=== PATIENT | male | born 1930 | race Caucasian/White ===

== ENCOUNTER 2019-01-30 13:00 | Emergency (ER) | payer MEDICARE, OTHER ==
[~2019-01-30] VITALS: Ht 193 cm; Wt 73.5 kg
--- OUTSIDE RECORDS SUMMARY | ~2019-01-30 | XMS | Encounter Summary ---
Demographics + + + | Address | [address] | | | [place] [address] | + + + | Home Phone | | + + + | Preferred Language | Unknown | + + + | Marital Status | | + + + | Yazidism Affiliation | Unknown | + + + | Race | Unknown | + + + | Ethnic Group | Unknown | + + + Author + + + | Author | [facility] | | | and [place] | + + + | Organization | [facility] | | | and [place] | + + + | Address | Unknown | + + + | Phone | Unavailable | + + + Support + + + + + | Name | Relationship | Address | Phone | + + + + + | Cristina Ashton | ECON | [address] | | | | | [place] | | | | | [address] | | + + + + + Care Team Providers + +------+ + | Care Clinical Research Specialist Name | Role | Phone | + +------+ + | Misha Foy | PCP | | | MD | | | + +------+ + Reason for Visit +---------+ + | Reason | Comments | +---------+ + | Results | 01/02/19 | +---------+ + Encounter Details +--------+ + + + + | Date | Type | Department | Care Team | Description | +--------+ + + + + | 01/05/ | Documentati | [facility] | Nicolas, | Results (01/02/19) | | 2019 | on | NEPHROLOGY IGOR | Herminio Abreu | | | | | [address] | Hhas | | | | | [address] [facility] [place] | | | | | | [address] | | | | | | [phone] | | | +--------+ + + + + Social History + +-------+ +--------+------+ | Tobacco Use | Types | Packs/Day | Years | Date | | | | | Used | | + +-------+ +--------+------+ | Never Smoker | | | | | + +-------+ +--------+------+ + +---+---+---+ | Smokeless Tobacco: | | | | | Never Used | | | | + +---+---+---+ + + + | Sex Assigned at | Date Recorded | | | | + + + | Not on file | | + + + + + + + | Job Start Date | Occupation | Industry | + + + + | Not on file | Not on file | Not on file | + + + + + + + + | Travel History | Travel Start | Travel End | + + + + + + | No recent travel history available. | + + documented as of this encounter Plan of Treatment +--------+---------+ + + + | Date | Type | Specialty | Care Team | Description | +--------+---------+ + + + | 05/07/ | Office | Nephrology | Elijah Bermeo MD | | | 2020 | Visit | | [address] [facility] | | | | | | [address] [place], [place] | | | | | | [address] | | | | | | | | +--------+---------+ + + + documented as of this encounter Procedures + +--------+ + + + | Procedure Name | Priori | Date/Time | Associated Diagnosis | Comments | | | ty | | | | + +--------+ + + + | CBC W/AUTO | Routin | 01/02/2019 | | Results for this | | DIFFERENTIAL | e | 16:00 PDT | | procedure are in the | | | | | | results section. | + +--------+ + + + | URIC ACID | Routin | 01/02/2019 | | Results for this | | | e | 16:00 PDT | | procedure are in the | | | | | | results section. | + +--------+ + + + | MAGNESIUM | Routin | 01/02/2019 | | Results for this | | | e | 16:00 PDT | | procedure are in the | | | | | | results section. | + +--------+ + + + | RENAL FUNCTION PANEL | Routin | 01/02/2019 | | Results for this | | | e | 16:00 PDT | | procedure are in the | | | | | | results section. | + +--------+ + + + documented in this encounter Results Uric Acid (01/02/2019 16:00 PDT) + +---------+ + + + | Component | Value | Ref Range | Performed | Pathologist | | | | | At | Signature | + +---------+ + + + | URIC ACID | 7.7 (A) | 4.4 - 7.6 | | | | (REF) | | | | | + +---------+ + + + + + | Specimen | + + | Blood | + + Renal Function Panel (01/02/2019 16:00 PDT) + + + + + + | Component | Value | Ref Range | Performed | Pathologist | | | | | At | Signature | + + + + + + | Na | 139 | 132 - 143 | | | | | | mmol/L | | | + + + + + + | K | 4.8 | 3.6 - 5.1 | | | | | | mmol/L | | | + + + + + + | Cl | 105 | 95 - 112 mmol/L | | | + + + + + + | CO2 | 23 | 19 - 31 mmol/L | | | + + + + + + | Anion Gap | 16 | 7 - 21 mmol/L | | | + + + + + + | Glucose | 142 (A) | 70 - 100 mg/dL | | | + + + + + + | BUN | 35 (A) | 6 - 23 mg/dL | | | + + + + + + | Creatinine | 2.02 (A) | 0.70 - 1.11 | | | + + + + + + | eGFR, | 31 (A) | 60 - 140 | | | | External | | | | | + + + + + + | BUN/Creatin | 17.3 | 6.0 - 28.6 | | | | ine Ratio | | | | | + + + + + + | Albumin | 3.9 | 3.5 - 5.0 g/dL | | | + + + + + + | Calcium | 9.6 | 8.5 - 10.3 | | | + + + + + + | PHOSPHORUS | 3.4 | 2.5 - 5.0 | | | + + + + + + + + | Specimen | + + | Blood | + + Magnesium (01/02/2019 16:00 PDT) + +-------+ + + + | Component | Value | Ref Range | Performed | Pathologist | | | | | At | Signature | + +-------+ + + + | Magnesium | 2.2 | 1.7 - 2.5 mg/dL | | | + +-------+ + + + + + | Specimen | + + | Blood | + + CBC w/ Auto Differential (01/02/2019 16:00 PDT) + + + + + + | Component | Value | Ref Range | Performed | Pathologist | | | | | At | Signature | + + + + + + | WBC | 5.6 | 4.5 - 11.0 | | | + + + + + + | RBC COUNT | 4 | 4 - 6 | | | + + + + + + | Hemoglobin | 12.9 (A) | 13.5 - 18.0 | | | + + + + + + | Hematocrit, | 39.1 (A) | 41 - 50 | | | | BF | | | | | + + + + + + | MCV | 91.1 | 81 - 99 | | | + + + + + + | RDW | 14.3 | 10.5 - 15.0 | | | + + + + + + | MCH | 30 | 27 - 33 | | | + + + + + + | MCHC, POC | 33 | 30 - 36 | | | + + + + + + | Platelet | 198 | 140 - 440 | | | | Count | | | | | | Plasma | | | | | + + + + + + | NEUTROPHILS | 61.2 | 39 - 80 % | | | | BL | | | | | + + + + + + | LYMPHOCYTES | 27.6 | 24 - 44 % | | | | BL | | | | | + + + + + + | MONOCYTES | 7.4 | 0 - 12 | | | | BAL | | | | | + + + + + + | EOSINOPHILS | 3.2 | 0 - 6 % | | | | BL | | | | | + + + + + + | BASOPHILS | 0.6 | 0 - 2 | | | | BAL | | | | | + + + + + + + + | Specimen | + + | Blood | + + documented in this encounter Visit Diagnoses Not on filedocumented in this encounter"
--- OUTSIDE RECORDS SUMMARY | ~2019-01-30 | XMS | Clinical Summary ---
Demographics + + + | Address | [address] | | | [place] [address] | + + + | Home Phone | | + + + | Preferred Language | Unknown | + + + | Marital Status | | + + + | Taoist Affiliation | Unknown | + + + | Race | Unknown | + + + | Ethnic Group | Unknown | + + + Author + + + | Author | [facility] | | | and [place] | + + + | Organization | [facility] | | | and [place] | + + + | Address | Unknown | + + + | Phone | Unavailable | + + + Support + + + + + | Name | Relationship | Address | Phone | + + + + + | Cristina Ashton | ECON | [address] [facility] | | | | | [place] | | | | | [address] | | + + + + + Care Team Providers + +------+ + | Care Hide Dropper Name | Role | Phone | + +------+ + | Misha Foy | PCP | | | MD | | | + +------+ + Allergies + + + + + + | Active Allergy | Reactions | Severity | Noted | Comments | | | | | Date | | + + + + + + | Zolpidem | Hallucination | Low | 10/21/19 | Confusion, Pt | | | | | 12 | requests to not be | | | | | | given this drug. | + + + + + + | Levofloxacin | Other (See Comments) | Medium | 01/19/20 | Nabeele a tendon in | | | | | 18 | the leg | + + + + + + | Nsaids | Other (See Comments) | Medium | | | + + + + + + Medications + + + +---------+------+------+-------+ | Medication | Sig | Dispensed | Refills | Star | End | Statu | | | | | | t | Date | s | | | | | | Date | | | + + + +---------+------+------+-------+ | cholecalciferol | Take 5,000 Units by | | 0 | 03/2 | | Activ | | (VITAMIN D-3) 1,000 | mouth daily. | | | 0/20 | | e | | units capsule | | | | 15 | | | + + + +---------+------+------+-------+ | carbidopa-levodopa | Take 1 tablet by | | 0 | 03/0 | | Activ | | (SINEMET) 25-100 mg | mouth 3 (three) | | | 8/20 | | e | | per tablet | times daily. | | | 19 | | | + + + +---------+------+------+-------+ | aspirin 81 MG | Take 1 tablet by | 30 | 11 | 03/1 | 03/1 | Activ | | tablet | mouth daily. | tablet | | 4/20 | 3/20 | e | | | | | | 19 | 20 | | + + + +---------+------+------+-------+ | levothyroxine | Take 50 mcg by mouth | | 0 | | | Activ | | (SYNTHROID) 50 mcg | every morning | | | | | e | | tablet | (before breakfast). | | | | | | + + + +---------+------+------+-------+ | lisinopril | Take 0.5 tablets by | 30 | 11 | 12/01 | 12/01 | Activ | | (PRINIVIL, ZESTRIL) | mouth 2 times daily. | tablet | | /20 | 05/21 | e | | 5 mg tablet | | | | 19 | 20 | | + + + +---------+------+------+-------+ | ferrous sulfate | Take 325 mg by mouth | | 0 | | | Activ | | 325 mg tablet | Once a week. | | | | | e | + + + +---------+------+------+-------+ | IRON PO | Take 325 mg by mouth | | 0 | 03/1 | 01/01 | Disco | | | once a week. | | | 08/19 | 07/19 | ntinu | | | | | | | 19 | ed | + + + +---------+------+------+-------+ Active Problems + + + | Problem | Noted Date | + + + | Parkinson's disease | 12/22/2018 | + + + | Coronary artery disease involving [place] coronary artery of | 11/16/2018 | | [place] heart without angina pectoris | | + + + + + | Overview: angiogram 10/19/2011: 3 Vessel coronary artery | | disease to LAD, OM ,right PDA. 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 EVH right leg | + + + + + | Sinus bradycardia | 10/19/2011 | + + + | Hypothyroidism | 10/18/2011 | + + + | History of non-ST elevation myocardial infarction (NSTEMI) | 10/18/2011 | + + + + + | Overview: 10/2011 | + + + + + | Hemorrhoids | 10/18/2011 | + + + | Epigastric pain | 10/18/2011 | + + + | CKD (chronic kidney disease), stage III | 05/31/2011 | + + + | Nephrolithiasis | 05/31/2011 | + + + | Anemia of chronic renal failure | 05/31/2011 | + + + | Hydronephrosis | 05/31/2011 | + + + + + | Overview: Chronic; Left side. | + + + + + | Vitamin D deficiency | 05/31/2011 | + + + | Secondary hyperparathyroidism | 05/31/2011 | + + + | Proteinuria | 05/31/2011 | + + + + + | Overview: Mild. | + + + + + | BPH (benign prostatic hypertrophy) | 05/31/2011 | + + + + + | Overview: S/P TURP | + + Encounters +--------+ + + + + | Date | Type | Specialty | Care Team | Description | +--------+ + + + + | 01/23/ | Telephone | Cardiology | Karyn Wren | Patient Concerns | | 2019 | | | [place] | | +--------+ + + + + | 01/22/ | Office | Cardiology | Karyn Wren | Coronary artery | | 2019 | Visit | | [place] | disease involving | | | | | | [place] coronary | | | | | | artery of [place] | | | | | | heart without angina | | | | | | pectoris (Primary | | | | | | Dx); Moderate aortic | | | | | | insufficiency; | | | | | | Chronic combined | | | | | | systolic and | | | | | | diastolic heart | | | | | | failure (HCC); | | | | | | Essential | | | | | | hypertension; | | | | | | Bradycardia on ECG; | | | | | | History of non-ST | | | | | | elevation myocardial | | | | | | infarction | | | | | | (NSTEMI); Encounter | | | | | | for monitoring | | | | | | DARREN-inhibitor | | | | | | therapy; CKD | | | | | | (chronic kidney | | | | | | disease), stage III | +--------+ + + + + | 01/08/ | Documentati | Cardiology | Yamilet Cole, | Delilah (Edmundo. | | 2019 | on | | TOWER EQUIPMENT REPAIRER | 01/02/19) | +--------+ + + + + | 01/05/ | Office | Nephrology | Rosas Martinez, | CKD (chronic kidney | | 2019 | Visit | | NUCLEAR SECURITY OFFICER | disease), stage III | | | | | | (Primary Dx) | +--------+ + + + + | 01/05/ | Documentati | Nephrology | Nicolas, | Results (01/02/19) | | 2019 | on | | Herminio Abreu | | | | | | Field Engineer | | +--------+ + + + + | 01/02/ | Telephone | Nephrology | Rosas Martinez, | Other (Appointment | | 2018 | | | NUCLEAR SECURITY OFFICER | reminder call) | +--------+ + + + + | 12/21/ | Office | Cardiology | Karyn Wren | Coronary artery | | 2018 | Visit | | [place] | disease involving | | | | | | [place] coronary | | | | | | artery of [place] | | | | | | heart without angina | | | | | | pectoris (Primary | | | | | | Dx); S/P CABG x 4; | | | | | | Moderate aortic | | | | | | insufficiency; | | | | | | History of non-ST | | | | | | elevation myocardial | | | | | | infarction | | | | | | (NSTEMI); Chronic | | | | | | systolic heart | | | | | | failure (HCC); | | | | | | Bradycardia on ECG; | | | | | | Essential | | | | | | hypertension; | | | | | | Encounter for | | | | | | monitoring | | | | | | DARREN-inhibitor | | | | | | therapy; Chronic | | | | | | kidney disease, | | | | | | stage III (moderate) | | | | | | ([facility]); Parkinson's | | | | | | disease ([facility]) | +--------+ + + + + | 11/16/ | Orders Only | Cardiology | Karyn Wren | Chronic kidney | | 2019 | | | [place] | disease, stage III | | | | | | (moderate) ([facility]); | | | | | | Proteinuria; | | | | | | Bradycardia; | | | | | | Encounter for | | | | | | therapeutic drug | | | | | | level monitoring | +--------+ + + + + from Last 3 Months Immunizations + + + + | Name | Dates Previously Given | Next Due | + + + + | PNEUMOCOCCAL | 10/19/2011 | | | POLYSACCHARIDE | | | | 23-VALENT (PPSV23) | | | + + + + Family History + + +------+ + | Medical History | Relation | Name | Comments | + + +------+ + | Diabetes, NIDDM | Father | | | + + +------+ + | Heart disease | Mother | | | + + +------+ + + +------+ + + | Relation | Name | Status | Comments | + +------+ + + | Father | | | | + +------+ + + | Father | | | | + +------+ + + | Mother | | | | + +------+ + + | Mother | | | | + +------+ + + Social History + +-------+ +--------+------+ [...] recent travel history available. | + + Last Filed Vital Signs + + + + | Vital Sign | Reading | Time Taken | + + + + | Blood Pressure | 92/54 | 01/22/2019 1309 PDT | + + + + | Pulse | 62 | 01/22/20191308 PDT | + + + + | Temperature | 35.6 C (96 F) | 05/31/2016 1014 PST | + + + + | Respiratory Rate | 18 | 11/16/2018 1445 PDT | + + + + | Oxygen Saturation | 98% | 01/22/20191308 PDT | + + + + | Inhaled Oxygen | - | - | | Concentration | | | + + + + | Weight | 73.4 kg (161 lb 14.4 | 01/22/20191308 PDT | | | oz) | | + + + + | Height | 193 cm (6' 4") | 01/22/2019 1309 PDT | + + + + | Body Mass Index | 19.71 | 01/22/2019 1309 PDT | + + + + Plan of Treatment +--------+---------+ + + + | Date | Type | Specialty | Care Team | Description | +--------+---------+ + + + | 05/07/ | Office | Nephrology | Elijah Bermeo MD | | | 2020 | Visit | | [address] [facility] | | | | | | [address] [place] | | | | | | [address] | | | | | | | | +--------+---------+ + + + + + + + + | Health Maintenance | Due Date | Last Done | Comments | + + + + + | Vaccine: | | | | | Dtap/Tdap/Td (1 - | 1 | | | | Tdap) | | | | + + + + + | Vaccine: Zoster (2 | | 01/31/2015 | | | of 3) | 5 | | | + + + + + | Adult Annual | | | | | Wellness Visit | 9 | | | + + + + + | Vaccine: Influenza | | 03/07/2018, 03/09/2017, | | | (#1) | 9 | 03/08/2016, Additional history | | | | | exists | | + + + + + | Vaccine: | Completed | 01/20/2015, 10/19/2011 | | | Pneumococcal 65+ | | | | | High/Highest Risk | | | | + + + + + Implants + +------+-------+ +--------+--------+--------+ | Implanted | Type | Area | Manufacture | Device | Shelf | Model | | | | | r | | Expira | / | | | | | | Identi | tion | Serial | | | | | | fier | Date | / Lot | + +------+-------+ +--------+--------+--------+ | Pacing Wire Dual | | N/A: | MEDLINE | | 03/31/ | 030-00 | | 030-005 - | | Heart | -LLOYD [id number] - | | 2015 | 5 | | [id number]: Qty: 1 on | | | MEDL | | | /[id number] | | 10/21/2011 | | | | | | /151 | + +------+-------+ +--------+--------+--------+ Procedures + +--------+ + + + | [...] | + +--------+ + + + | LABS - EXTERNAL SCAN | | 01/02/2019 | | Results for this | | | | 0:00 PDT | | procedure are in the | | | | | | results section. | + +--------+ + + + from Last 3 Months Results CBC w/ Auto Differential (01/02/2019 16:00 PDT) [...] + + | Blood | + + Uric Acid (01/02/2019 16:00 PDT) + +---------+ [...] + + | Blood | + + LABS - EXTERNAL SCAN (01/02/2019 0:00 PDT) + + + | Narrative | Performed At | + + + | Ordered by an | | | unspecified provider. | | + + + from Last 3 Months Insurance + +--------+ +--------+ +---------+--------+ | Payer | Benefi | Subscriber | Effect | Phone | Address | Type | | | t Plan | ID | rajwinder | | | | | | / | | Dates | | | | | | Group | | | | | | + +--------+ +--------+ +---------+--------+ | MEDICARE | MEDICA | [id number] | | [phone] | | Medica | | | RE | | 999-Pr | 5 | | re | | | PART A | | esent | | | | | | AND B | | | | | | + +--------+ +--------+ +---------+--------+ | | TRICAR | [id number] | 12/03/19 | [phone] | | Indemn | | | E FOR | | 19-Pre | 0 | | ity | | | LIFE | | sent | | | | + +--------+ +--------+ +---------+--------+ + +--------+ +--------+ + + | Guarantor Name | Accoun | Relation to | Date | Phone | Billing Address | | | t Type | Patient | of | | | | | | | | | | + +--------+ +--------+ + + | Graeme Ashton | Person | Self | [birth year] | [address] | | | al/Abhijeet | | [phone] | [phone] | [place] | | | deuce | | | 5 (Home) | [address] | + +--------+ +--------+ + + Advance Directives Patient has advance care planning documents on file. For more information, please contact:[facility] [place] [address]
--- OUTSIDE RECORDS SUMMARY | ~2019-01-30 | XMS | Clinical Summary ---
Demographics + + + | Address | [address] | | | [place] [address] | + + + | Home Phone | | + + + | Preferred Language | Unknown | + + + | Marital Status | | + + + | Sabianist Affiliation | Unknown | + + + | Race | Unknown | + + + | Ethnic Group | Unknown | + + + Author + + + | Author | [facility] (Historical as of | | | 12-16-18) | + + + | Organization | [facility] (Historical as of | | | 12-16-18) | + + + | Address | Unknown | + + + | Phone | Unavailable | + + + Support + + + + + | Name | Relationship | Address | Phone | + + + + + | Cristina Ashton | ECON | [address] [facility] | | | | | [place] | | | | | [address] | | + + + + + Care Team Providers + +------+ + | Care Shuttle Preparation Supervisor Name | Role | Phone | + +------+ + | Misha Foy MD | PP | | + +------+ + Allergies + + + + + + | Active Allergy | Reactions | Severity | Noted | Comments | | | | | Date | | + + + + + + | Zolpidem | Confusion | Low | 10/21/19 | Pt requests to not | | | | | 12 | be given this drug. | + + + + + + | Levofloxacin | Other (See Comments) | Medium | 01/19/20 | Nabeele a tendon in | | | | | 18 | the leg | + + + + + + | Nsaids | Other (See Comments) | Medium | | | + + + + + + Current Medications + + +--------+---------+------+------+-------+ | Prescription | Sig. | Disp. | Refills | Star | End | Statu | | | | | | t | Date | s | | | | | | Date | | | + + +--------+---------+------+------+-------+ | levothyroxine | Take 125 mcg by | | | | | Activ | | (SYNTHROID, | mouth. | | | | | e | | LEVOTHROID) 125 MCG | | | | | | | | tablet | | | | | | | + + +--------+---------+------+------+-------+ | Cholecalciferol | Take 5,000 Units by | | | 03/2 | | Activ | | 1000 UNITS capsule | mouth daily. | | | 0/20 | | e | | | | | | 15 | | | + + +--------+---------+------+------+-------+ | omeprazole | | | | 09/1 | | Activ | | (PRILOSEC) 20 MG | | | | 1/20 | | e | | capsule | | | | 18 | | | + + +--------+---------+------+------+-------+ | carbidopa-levodopa | Take 1 tablet by | | | | | Activ | | (SINEMET) 25-100 MG | mouth 3 (three) | | | | | e | | per tablet | times daily. | | | | | | + + +--------+---------+------+------+-------+ | IRON PO | Take 325 mg by mouth | | | | | Activ | | | once a week. | | | | | e | + + +--------+---------+------+------+-------+ | aspirin 81 MG | Take 1 tablet by | 30 | 11 | 06/30 | 06/30 | Activ | | tablet | mouth daily. | tablet | | 08/19 | 07/19 | e | | | | | | 19 | 20 | | + + +--------+---------+------+------+-------+ | lisinopril | Take 1 tablet by | 30 | 11 | 10/30 | 10/30 | Activ | | (ZESTRIL) 5 MG | mouth nightly. 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 | + + + + + | BPH (benign prostatic hypertrophy) | 05/31/2011 | + + + + + | Overview: S/P TURP | + + Resolved Problems + + + + | Problem | Noted | Resolved | | | Date | Date | + + + + | MARI (acute kidney injury) | 11/15/19 | | | | 12 | 3 | + + + + | Edema of lower extremity | 10/26/19 | | | | 12 | 3 | + + + + Encounters +--------+ + + + + | Date | Type | Specialty | Care Team | Description | +--------+ + + + + | 11/16/ | Office | | Karyn Wren | Coronary artery | | 2018 | Visit | | [facility] [place] | disease involving | | | | | | tulalip coronary | | | | | | artery of tulalip | | | | | | heart without angina | | | | | | pectoris (Primary | | | | | | Dx); S/P CABG x 4; | | | | | | Chronic combined | | | | | | systolic and | | | | | | diastolic heart | | | | | | failure (HCC); | | | | | | Moderate aortic | | | | | | insufficiency; Sinus | | | | | | bradycardia; | | | | | | Essential | | | | | | hypertension; CKD | | | | | | (chronic kidney | | | | | | disease), stage III; | | | | | | History of non-ST | | | | | | elevation myocardial | | | | | | infarction | | | | | | (NSTEMI); | | | | | | Bradycardia on ECG; | | | | | | Encounter for | | | | | | monitoring | | | | | | DARREN-inhibitor | | | | | | therapy | +--------+ + + + + | 11/15/ | Telephone | | Angeline Garduno MA | | | 2018 | | | | | +--------+ + + + + from Last 3 Months Immunizations + + + + | Name | Dates Previously Given | Next Due | + + + + | Pneumococcal | 10/19/2011 | | | Polysaccharide | | | | 23-valent | | | + + + + Family History + + +------+ + | Medical History | Relation | Name | Comments | + + +------+ + | Diabetes type II | Father | | | + + [...] | | | + +---+---+---+ + + +---------+ + | Alcohol Use | Drinks/We | oz/Week | Comments | | | ek | | | + + +---------+ + | No | | | | + + +---------+ + + + + | Sex Assigned at | Date Recorded | | | | + + + | Not on file | | + + + Last Filed Vital Signs + + + + | Vital Sign | Reading | Time Taken | + + + + | Blood Pressure | 150/72 | 11/16/2018 2:34 PM PDT | + + + + | Pulse | 64 | 11/16/2018 2:34 PM PDT | + + + + | Temperature | 35.6 C (96 F) | 05/31/2016 10:03 AM PST | + + + + | Respiratory Rate | 18 | 11/16/2018 2:34 PM PDT | + + + + | Oxygen Saturation | 98% | 11/16/2018 2:34 PM PDT | + + + + | Inhaled Oxygen | - | - | | Concentration | | | + + + + | Weight | 81.3 kg (179 lb 4.8 | 11/16/2018 2:34 PM PDT | | | oz) | | + + + + | Height | 193 cm (6' 4") | 11/16/2018 2:34 PM PDT | + + + + | Body Mass Index | 21.83 | 11/16/2018 2:34 PM PDT | + + + + Plan of Treatment + + + + + | Health Maintenance | Due Date | Last Done | Comments | + + + + + | Vaccine: | | | | | Dtap/Tdap/Td (1 - | 1 | | | | Tdap) | | | | + + + + + | Vaccine: Zoster (1 | | | | | of 2) | 2 | | | + + + + + | Vaccine: | | 10/19/2011 | | | Pneumococcal 65+ | 3 | | | | High/Highest Risk (2 | | | | | of 2 - PCV13) | | | | + + + + + | Vaccine: Influenza | | | | | (#1) | 9 | | | + + + + + Implants + +------+-------+ +--------+--------+--------+ | Implanted | Type | Area | Manufacture | Device | Expira | Model | | | | | r | | tion | / | | | | | | Identi | Date | Serial | | | | | | fier | | / Lot | + +------+-------+ +--------+--------+--------+ | Pacing Wire Dual | | N/A: | MEDLINE | | 03/31/ | 030-00 | | 030-005 - | | Heart | | | 2015 | 5 | | [id number]: Qty: 1 on | | | | | | [id number] | | 10/21/2011 by Edward, | | | | | | | | MD Wesley | | | | | | | + +------+-------+ +--------+--------+--------+ Procedures + +--------+ + + + | Procedure Name | Priori | Date/Time | Associated Diagnosis | Comments | | | ty | | | | + +--------+ + + + | EKG STANDARD 12 LEAD | Routin | 11/16/2018 | Coronary artery | Results for this | | | e | 2:43 PM | disease involving | procedure are in the | | | | PDT | tulalip coronary | results section. | | | | | artery of tulalip | | | | | | heart without angina | | | | | | pectoris S/P CABG | | | | | | x 4 Moderate aortic | | | | | | insufficiency | | | | | | Sinus bradycardia | | | | | | Essential | | | | | | hypertension CKD | | | | | | (chronic kidney | | | | | | disease), stage III | | | | | | History of non-ST | | | | | | elevation myocardial | | | | | | infarction (NSTEMI) | | | | | | Bradycardia on ECG | | + +--------+ + + + from Last 3 Months Results EK STANDARD 12 LEAD (11/16/2018 2:43 PM) + + + + + | Component | Value | Ref Range | Performed At | + + + + + | Ventricular Rate | 64 | BPM | [facility] | + + + + + | Atrial Rate | 64 | BPM | [facility] | + + + + + | P-R Interval | 262 | ms | [facility] | + + + + + | QRS Duration | 100 | ms | [facility] | + + + + + | Q-T Interval | 446 | ms | [facility] | + + + + + | QTC Calculation | 460 | ms | [facility] | | (Bezet) | | | | + + + + + | Calculated P [place] | 43 | degrees | [facility] | + + + + + | Calculated R [place] | -45 | degrees | [facility] | + + + + + | Calculated T [place] | 94 | degrees | [facility] | + + + + + | Diagnosis | Please refer to | | [facility] | | | Providers office visit | | | | | note for Providers | | | | | Interpretation.Confirmed | | | | | by [facility] [place] Read Only, | | | | | [facility] ([id number]), | | | | | movie editor Julio Smith | | | | | ([id number]) on 11/16/2018 | | | | | 3:02:55 PM | | | + + + + + + + + + + | Performing | Address | City/State/Zipcode | Phone Number | | Organization | | | | + + + + + | [facility] | [address] | [place] [address] | | + + + + + from Last 3 Months Insurance + +--------+ +------+-------+ + | Payer | Benefi | Subscriber | Type | Phone | Address | | | t Plan | ID | | | | | | / | | | | | | | Group | | | | | + +--------+ +------+-------+ + | MEDICARE | MEDICA | [id number] | | | [address] | | | [place] | | | | [place] [id number] | | | IP-OP | | | | | + +--------+ +------+-------+ + | - WPS - | TRICAR | [id number] | | | [address] [address] | | [place] | [place] | | | | [place] | | | LIFE | | | | [phone] | + +--------+ +------+-------+ + + +--------+ +--------+ + + | Guarantor Name | Accoun | Relation to | Date | Phone | Billing Address | | | t Type | Patient | of | | | | | | | | | | + +--------+ +--------+ + + | ELISSA ASHTON | Person | Self [birth year] Home: | [address] | | | al/Fam | | 1931 | [phone] [place] | | | deuce | | | [phone] | [phone] | + +--------+ +--------+ + +
--- OUTSIDE RECORDS SUMMARY | ~2019-01-30 | XMS | Encounter Summary ---
Demographics + + + | Address | [address] | | | [place] [address] | + + + | Home Phone | | + + + | Preferred Language | Unknown | + + + | Marital Status | | + + + | Jew Affiliation | Unknown | + + + | Race | Unknown | + + + | Ethnic Group | Unknown | + + + Author + + + | Author | [facility] | | | and [place] | + + + | Organization | [facility] | | | and [place] | + + + | Address | Unknown | + + + | Phone | Unavailable | + + + Support + + + + + | Name | Relationship | Address | Phone | + + + + + | Cristina Ashton | МАРИНА | [address] [facility] | | | | | [place] | | | | | [address] | | + + + + + Care Team Providers + +------+ + | Care Gum Rolling Machine Tender Name | Role | Phone | + +------+ + | Misha Foy PCP | | | MD | | | + +------+ + Encounter Details +--------+ + + + + | Date | Type | Department | Care Team | Description | +--------+ + + + + | 11/16/ | Orders Only | [facility] | Karyn Wren | Chronic kidney | | 2019 | | CARDIOLOGY [place] | [address] | disease, stage III | | | | [address] | [address] | (moderate) ([facility]); | | | | [address] | [place] [address] | Proteinuria; | | | | [place], [place] | [phone] | Bradycardia; | | | | [address] | | Encounter for | | | | [phone] | | therapeutic drug | | | | | | level monitoring | +--------+ + + + + Social History + +-------+ +--------+------+ | Tobacco Use | Types | Packs/Day | Years | Date | | | | | Used | | + +-------+ +--------+------+ | Never Smoker | | | | | + +-------+ +--------+------+ + + + | Sex Assigned at [...] | Elijah Bermeo MD | | | 2019 | Visit | | [address] [place] | | | | | | [address] [facility], [place] | | | | | | [address] | | | | | | | | +--------+---------+ + + + + +--------+ + + | Name | Priori | Associated Diagnoses | Order Schedule | | | ty | | | + +--------+ + + | Urinalysis with Microscopic if | Routin | Chronic kidney | Expected: | | Indicated | e | disease, stage III | 04/19/2018, Expires: | | | | (moderate) (HCC) | 01/18/2019 | | | | Proteinuria | | + +--------+ + + | Renal Function Panel | Routin | Chronic kidney | Expected: | | | e | disease, stage III | 01/07/2019, Expires: | | | | (moderate) ([facility]) | 07/08/2019 | | | | Proteinuria | | | | | Bradycardia | | + +--------+ + + | CBC with Differential | Routin | Chronic kidney | Expected: | | | e | disease, stage III | 01/07/2019, Expires: | | | | (moderate) ([facility]) | 07/08/2019 | | | | Proteinuria | | | | | Bradycardia | | + +--------+ + + | Magnesium | Routin | Chronic kidney | Expected: | | | e | disease, stage III | 01/07/2019, Expires: | | | | (moderate) ([facility]) | 07/08/2019 | | | | Proteinuria | | | | | Bradycardia | | + +--------+ + + | Uric Acid | Routin | Chronic kidney | Expected: | | | e | disease, stage III | 01/07/2019, Expires: | | | | (moderate) ([facility]) | 01/07/2019 | | | | Proteinuria | | | | | Bradycardia | | + +--------+ + + | Protein/Creatinine Ratio, Urine | Routin | Chronic kidney | Expected: | | | e | disease, stage III | 01/07/2019, Expires: | | | | (moderate) ([facility]) | 07/08/2019 | | | | Proteinuria | | | | | Bradycardia | | + +--------+ + + | Basic Metabolic Panel | Routin | Chronic kidney | Expected: | | | e | disease, stage III | 11/30/2018, Expires: | | | | (moderate) ([facility]) | 11/16/2019 | | | | Encounter for | | | | | therapeutic drug | | | | | level monitoring | | + +--------+ + + documented as of this encounter Visit Diagnoses + + | Diagnosis | + + | Chronic kidney disease, stage III (moderate) (HCC) Chronic kidney disease, Stage III | | (moderate) | + + | Proteinuria | + + | Bradycardia Other specified cardiac dysrhythmias | + + | Encounter for therapeutic drug level monitoring Encounter for therapeutic drug | | monitoring | + + documented in this encounter"
--- OUTSIDE RECORDS SUMMARY | ~2019-01-30 | XMS | Encounter Summary ---
Demographics + + + | Address | [address] | | | [place] [address] | + + + | Home Phone | | + + + | Preferred Language | Unknown | + + + | Marital Status | | + + + | Christianity Affiliation | Unknown | + + + | Race | Unknown | + + + | Ethnic Group | Unknown | + + + Author + + + | Author | [facility] | | | and [place] | + + + | Organization | [facility] | | | and [...] [place] | | | | | [address] | | + + + + + Care Team Providers + +------+ + | Care Photographic Process Attendant Name | Role | Phone | + +------+ + | Misha Foy | PCP | | | MD | | | + +------+ + Reason for Visit + + + | Reason | Comments | + + + | Follow-up, Office | One month | | Visit | | + + + Encounter Details +--------+---------+ + + + | Date | Type | Department | Care Team | Description | +--------+---------+ + + + | 01/22/ | Office | [facility] | Karyn Wren | Coronary artery | | 2019 | Visit | CARDIOLOGY [place] | [address] | disease involving | | | | [address] | [place] [address] | [place] coronary | | | | [address] | [place] [address] | artery of [place] | | | | [place] | [phone] | heart without angina | | | | [address] | | pectoris (Primary | | | | [phone] | | Dx); Moderate aortic | | [...] | | | disease), stage III | +--------+---------+ + + + Social History + +-------+ [...] + + documented as of this encounter Last Filed Vital Signs + + + + | Vital Sign | Reading | Time Taken | + + + + | Blood Pressure | 92/54 | 01/22/2019 1309 PDT | + + + + | Pulse | 62 | 01/22/20191308 PDT | + + + + | Temperature | - | - | + + + + | Respiratory Rate | - | - | + + + + | Oxygen [...] 1309 PDT | + + + + documented in this encounter Patient Instructions Patient Instructions Karyn Wren FNP - 01/22/2019 13:00 PDTI made no changes to medications , you need to discuss what you want to do with Dr. Foy, as currently not on any medicatons for your heart or Parkinson's . I am unable to progress cardiac medications due to low blood pressure, and talk to Dr. Alvaro bean about referral for Parkinson's Make appointment to see me once in a spot to address heart issues again documented in this encounter Progress Notes Karyn Wren FNP - 01/22/2019 1300 PDTFormatting of this note might be different f rom the original. Date of visit: 01/23/2019 Primary Care Physician: Misha Foy MD CHIEF COMPLAINT: Chief Complaint Patient presents with Follow-up, Office Visit One month HISTORY OF PRESENT ILLNESS: Mr. Graeme Ashton is an 88 year old man who is here today to follow up on his response to increased dose of lisinopril 2.5 mg BID . He is accompanied today by his Cristina , who contributed to history. He is a patient of and last seen by her 10/26/2018. Today, I reviewed all previous documentation available to me in electronic medical [address] and from external sources. He has a history of coronary artery disease with CABG x 4 in 2006, hypertension, systolic H F with 30-35%, moderate AI, hypothyroidism , chronic kidney disease stage III, Parkinson's, GERD, anemia When last seen by Dr. Martinez, she reviewed his 24-hour Holter, echo, and had evaluated his response to amlodipine. He had stopped all of his blood pressure medications prior to seei ng her for symptoms of dizziness. She restarted his lisinopril 2.5 mg daily, and ordered a BMP, and asked him to follow-up with me in 2 weeks for heart failure medication titration. She noted we would not be able to use a beta-al due to his low baseline heart rate. S he suggested initiation of a statin at our next visit. His kidney disease is followed by Dr. Bermeo, and nephrology TANKAGE GRINDER OPERATOREd Martinez, and darrell miramontes seen by them on July 07, 2018, and his metoprolol was stopped on that visit due to low h eart rate His current and previous testing and procedures are detailed below . I saw him last December 21, when I changed his lisinopril to 2.5 mg twice daily for low sy stolic blood pressure and dizziness. He followed up with nephrology nurse practitioner Rosas Martinze on January 05 who t old him to hold his lisinopril if his blood pressure was less than 130 systolic. He reports today that he has stopped taking the lisinopril entirely, as his systolic bl ood pressure is always in the low 100's, and high 90's, and he has also stopped his Sinemet for his Parkinson's, and he complains of ongoing intermittent dizziness and lightheadedness . He also reports he is having difficulty, as he used to walk twice around the football field , as his legs seem to be weak, and "do not work". His has been away for 3 months, as she has also been hospitalized as broke her pelv is, and just returned yesterday. She thinks that he may have increased memory problems. Noe mcclain also reported his daughter, who has Parkinson's, had wondered if some of his dizziness an d lightheadedness may also be neurogenic related to his Parkinson's, which she had also ment ioned to me last time. He brought his medication bottles to the clinic today, and personally reviewed by me. He denies any chest pain, central or peripheral edema palpitations, dyspnea,or syncope. He also denies any signs or symptoms of stroke or TIA, or any ER visits, surgery, or hospitali zation since last seen. He is a lifelong non-smoker, has stopped drinking caffeine, denies any use of alcohol, or recreational or illicit drugs. He is retired , and used to be in the [employer] REVIEW OF SYSTEMS: Negative except for pertinent items noted in HPI. Constitutional: Denies fatigue or unexplained weight loss. Appetite is adequate. Weight d own 21 lbs since June when he weighed 192 pounds. Weight is stable. Denies night sweats fevers or chills HENT: Denies nosebleeds. Denies hearing problems. Denies dysphagia Eyes:Hx bilateral cataract removal. Denies visual disturbance or double vision. Respiratory/Sleep:: reports continuous churn buttermaker chronic cough at night. Denies shortness of breath. Denies hemoptysis or excessive sputum production. Denies snoring, orthopnea, PND. Cardiovascular: Mild pedal edema, none today. Denies chest pain, palpitations . Denies h istory of rheumatic fever. Denies claudication . Gastrointestinal: GERD. Denies nausea, vomiting, abdominal pain and blood in stool. 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 BPH denies hematuria. Musculoskeletal: Denies myalgias, back pain and arthralgias. Skin: Denies color change. Denies rash or lesions Neurological: Reports dizziness and orthostatic lightheadedness today Parkinson's.Burning And tingling to feet in the night Denies history of stroke/Transient ischemic attack.Denies history of seizures. Denies syncope and numbness. Hematological/Oncology .anemia of chronic renal failure. bruises easily. Denies bleeding Denies history of cancer Endocrine: Hypothyroidism.Denies diabetes Denies excessive thirst or hunger. Psychiatric/Behavioral: denies any history of depression or anxiety or other psychiatric il lness. Vaccines: Current on flu vaccine?. Current on pneumonia vaccine?. Habits/Social : Denies history of smoking. Denies EtOH use. Drinks no caffeine daily . D enies recreational or illicit drug use. Exercises with walking daily for one lap around fo otball field and tolerates. Lives in [place] . , ,helps him. daughter Joselin ,has parkinson's as well , and also helps him Outpatient Medications Prior to Visit Medication Sig Dispense Refill aspirin 81 MG tablet Take 1 tablet by mouth daily. 30 tablet 11 carbidopa-levodopa (SINEMET) 25-100 mg per tablet Take 1 tablet by mouth 3 (three) time s daily. (Patient not taking: Reported on 01/22/2019) cholecalciferol (VITAMIN D-3) 1,000 units capsule Take 5,000 Units by mouth daily. (Pat ient taking differently: Take 1,000 Units by mouth Every other day.) ferrous sulfate 325 mg tablet Take 325 mg by mouth Once a week. IRON PO Take 325 mg by mouth once a week. levothyroxine (SYNTHROID) 50 mcg tablet Take 50 mcg by mouth every morning (before cindy kfast). lisinopril (PRINIVIL, ZESTRIL) 5 mg tablet Take 0.5 tablets by mouth 2 times daily. (Pa tient not taking: Reported on 01/22/2019) 30 tablet 11 No facility-administered medications prior to visit. PHYSICAL EXAM: Wt Readings from Last 3 Encounters: 01/22/19 73.4 kg (161 lb 14.4 oz) 01/05/19 74.8 kg (164 lb 14.4 oz) 12/21/18 77.6 kg (171 lb) Temp Readings from Last 3 Encounters: No data found for Temp BP Readings from Last 3 Encounters: 01/22/19 92/54 01/05/19 (!) 82/50 12/21/18 106/66 Pulse Readings from Last 3 Encounters: 01/22/19 62 01/05/19 60 12/21/18 64 Vital signs: 11/16/2018: Weight 179 pounds. Blood pressure 150/72. Heart rate 64. Vital signs: 10/26/2018: Weight 178 pounds. blood pressure 170/78. heart rate 64 GENERAL: Thin frail man, in no distress. Appears approximately stated age. HEENT: Normocephalic, atraumatic. EYES: PERRL, EOM normal. MOUTH: Oral mucosae moist, dentition adequate, no lesions noted NECK: No JVD, lymphadenopathy, thyromegaly, bruits. Carotid pulses are 2+ bilaterally LUNGS/CHEST: Clear bilaterally, with no rales, rhonchi or wheezing noted, respirations unl abored HEART: sternotomy well healed, no crepitus, bulge to distal end under sternum Nondisplace d PMI, regular rate and rhythm, S1, S2 normal. No murmurs, rubs or gallops noted. ABDOMEN: Soft, nontender, no organomegaly, masses or bruits. Bowel sounds are normal in a ll 4 quadrants. The abdominal aortic pulsation is not palpable. EXTREMITIES: Trace pedal Edema on left none on right . Radial pulses 2+ bilaterally. Fe moral pulses are 2+ bilaterally without bruits. DP and PT pulses are 2+ bilaterally. No cl ubbing. SKIN: Warm and dry, capillary refill is normal, no lesions. NEUROLOGIC: Awake, alert and oriented x 3. No focal motor or sensory deficits, but hand tr emors and shuffling gait, consistent with Parkinson's PSYCHIATRIC: Appropriate, affect appears normal DATA: Blood tests: Lab Results Component Value Date WBC 4.7 07/04/2018 RBC 4 01/02/2019 HGB 12.3 (A) 07/04/2018 Lab Results Component Value Date NA 139 01/02/2019 K 4.8 01/02/2019 CL 105 01/02/2019 CO2 23 01/02/2019 ANIONGAP 16 01/02/2019 GLUF 132 (A) 07/04/2018 BUN 35 (A) 01/02/2019 BCR 14.5 07/04/2018 EGFR 38 (A) 07/04/2018 Lab Results Component Value Date CHOL 211 (A) 01/21/2014 TRIG 161 (A) 01/21/2014 GLUF 132 (A) 07/04/2018 No results found for: BNP, TSH, CRP No results found for: TOTEPI CARDIAC PROCEDURES/IMAGING Last angiogram 10/19/2011: 3 Vessel coronary artery disease to LAD, OM ,right PDA. Mildly elevated LVEDP., CABG recommended. CORONARY ANGIOGRAPHY: Left Main: distal 30% to 40% plaqu e. LAD: heavily calcified to proximal and mid segment. First diagonal branch small vessel, 2nd diagonal branch was a large-caliber vessel with an ostial 85% stenosis. Ivo-zh-yfbusw LA D right at the bifurcation of the ,2nd diagonal has long lesion with up 90% stenosis. Left circumflex: heavily calcified proximally. 1st OM is largest vessel with distal 99% stenosis with TARIK 1 flow and evidence of a thrombus at that point, distal left circumflex small. RCA : heavily calcified with mild diffuse disease with a 90% discrete stenosis at junction bet ween the mid and the distal segment. Right posterior descending artery had a proximal 80% s tenosis. CAB10/21/2011: ( Edward) :X 4: LEW-LAD, saphenous vein graft-diagonal, saphenous vein graft-OM, saphenous vein graft-PDA. EVH right leg VASCULAR TESTING AND PROCEDURES Carotid US 10/20/2011: Mild nodular plaque in both common carotid bifurcations, without yadira w-limiting stenosis. Vertebral blood flow is antegrade bilaterally.RIGHT COMMON CAROTID: Nod ular plaque is visualized in the right common carotid bifurcation, without flow-limiting shireen nosis. The Doppler velocities are normal throughout right carotid bifurcation and the right vertebral blood flow is antegrade. Right Peak Systolic Velocities (cm/sec)CCA-PROX: 79 CC A-DIST :68 ICA-PROX : 72 ICA-MID : 71 ICA-DIST :75 ECA-PROX: 110 Vertebral : 46 LEFT COMMON CAROTID:Mild atherosclerotic plaque is visualized in the left common car otid bifurcation, without flow limiting stenosis. Doppler velocities are normal throughout l eft carotid bifurcation and the left vertebral blood flow is antegrade. Left Peak Systolic V elocities (cm/sec) CCA-PROX :78 CCA-DIST: 77 ICA-PROX :73 ICA-MID : 71 ICA-DIST :64 ECA-PROX :78 Vertebral :49 ECHO Echo: 10/02/2018: ([facility]) sinus rhythm. Resting bradycardia. Technically adequate study. Sub optimal image with poor subcostal views. EF 30-35%, LV mildly dilated, LV wall thickness no rmal. Moderate diastolic dysfunction. RV normal in size and function. Mild biatrial enlar gement. Aortic valve mildly thickened, trileaflet, moderate AI with half-time pressure 674 ms, valve mildly calcified, no aortic stenosis. Mitral valve normal, mild MR, mild MAC. Tr icuspid valve normal, trace TR. No pulmonary hypertension, RVSP 19.19 mmHg. Mild PI. No p ericardial effusion. IVC WNL, CVP 5-10. Aortic root dilated 43 mm descending aorta not wel l seen. No mass, no clot, no ASD, no VSD ECHO: 10/19/2011 ([facility]): Sinus rhythm. Suboptimal study. EF 45-50%. LV normal in size and wall thickness. Mild diastolic dysfunction, grade 1. Regional wall motion abnormalities t o LV: basal inferior - mildly hypokinetic; mid inferior - mildly hypokinetic; posterior - moderately hypokinetic; lateral - mildly hypokinetic; EKG/EVENT MONITOR 24-hour Holter: 07/17/2018: Indication bradycardia: Underlying sinus rhythm, average heart r ate 57 bpm, range 47 -76 bpm. 1.39% burden of PVC's ( 1279PVC's were recorded;1.39% burde n of PVC's, 13 ventricular couplets and one triplet.) No AV conduction abnormalities. No ischemia. Normal circadian rhythm. unspecified symptoms associated with sinus bradycardia.N o atrial fibrillation/Flutter letter. One missed beat. Supraventricular burden 0.06%.( 35 PAC's were recorded, 9 atrial couplets, and one triple) EK07/13/2018:Normal sinus rhythm, 1st degree AV block,occasional PVC low voltage QRS karoline ds II. Old inferior DC. rate 65 bpm, WV 258 ms, QRS 100 ms, QTC 451 ms, tracing personally reviewed by me EK11/16/2018: Sinus rhythm with first-degree AV block, PAC's. H QRS, old inferior DC. R ate 64 bpm, WV 262 ms, QRS 100 ms, QTC 460 ms, tracing personally reviewed by tx and antonio vela morphology to previous EKG in June 2018 LABS Labs: 07/13/2018: CBC: WBC 4.7, RBC 4.07, hemoglobin 12.3, hematocrit 37.4, platelets 169. CMP: Sodium 140, potassium 4.9, chloride 107, glucose 132, BUN 25, creatinine 1.73, albumin 3.6, GFR 38 uric acids 6.7 Labs: 11/06/2018:( lisinopril 2.5 mg):BMP : Sodium 138, potassium 4.3, chloride 105, glucose 147, calcium 9.5, BUN 30, creatinine 1.86, GFR 35 Labs: 12/19/2018: ( lisinopril 5 mg). BMP: Sodium 141, potassium 4.2, chloride 105, glucose 112, BUN 34, creatinine 1.85, GFR 35. Labs: 01/02/2019: CBC: WBC 5.6, RBC 4.0, hemoglobin 12.9, hematocrit 39.1, platelets 198 lucien l function panel: Sodium 139, potassium 4.8, chloride 105, glucose 142, BUN 35, creatinine 2 .02, GFR 31, albumin 3.9, calcium 9.6. Magnesium 2.2 Uric acid 7.7 ASSESSMENT & PLAN: He was here today with his to follow-up on his response to lisinopril 2.5 mg BID. He has problems as detailed below. He has not tolerated lisinopril, and continues to have hypotension, and dizziness and light headedness, and has stopped it again. He also stopped his Parkinson medication, Sinemet, wh ich I think has exacerbated his dizziness and lightheadedness. His labs performed by nephrology December are detailed above, and show a stable GFR of 31 with normal electrolytes , mild anemia, normal magnesium, and elevated uric acid. I had a long discussion with his and him today that it might be better if they get his Parkinson's treated more effectively, and also have a discussion with their PCP, Dr. Fang bradley about what his wishes for treatment and therapy are, as he is currently not on any medi cations for his heart function, and has also stopped his medications for his Parkinson's I discussed with them that I was very limited on our ability to treat his heart failure due to his frailness, and low heart rate. His also feels that he has had a deterioration in his memory, which has also affect ed his medication compliance, and self-care abilities. For his cardiac medications, he is now only on aspirin 81 mg daily for coronary artery di sease with coronary artery bypass grafts. I will send a message to Dr. Martinez and that therapy would need to be stopped until he dec ided how he wished to proceed, and may also benefit from first having his Parkinson's treate d more effectively. He would likely benefit from a statin with his history of coronary artery bypass grafts, but his is going to wait and talk to Dr. Foy before making any more medication jeffery ges. I have told them to call me for an appointment once they feel that they are in a position t o pursue further treatment of his heart problems. I will also call his PCP, Dr. Foy to discuss his problems with therapy, and memory , so he can follow up with him and his . 1. Coronary artery disease involving [place] coronary artery of [place] heart without angina pectoris 2. Moderate aortic insufficiency 3. Chronic combined systolic and diastolic heart failure (HCC) 4. Essential hypertension 5. Bradycardia on ECG 6. History of non-ST elevation myocardial infarction (NSTEMI) 7. Encounter for monitoring DARREN-inhibitor therapy 8. CKD (chronic kidney disease), stage III No orders of the defined types were placed in this encounter. The following portions of the patient's history were personally reviewed by me and updated as appropriate: EKG tracings, other specialty provider and PCP notes,any Hospital admission and discharge summaries, any ER records , current and previous cardiac testing and procedure reports and d saniya, medication bottles brought to visit today personally reviewed by me. Allergies, current medications.labs Family history, past medical history, past social history, past surgical history. Problem list. Moe DAVILA [facility]iology 01/23/2019 documente d in this encounter Plan of Treatment +--------+---------+ + + + | Date | Type | Specialty | Care Team | Description | +--------+---------+ + + + | 05/07/ | Office | Nephrology | Elijah Bermeo MD | | | 2019 | Visit | | [address] [facility] | | | | | | [address] [place], [place] | | | | | | [id number] | | | | | | | | +--------+---------+ + + + documented as of this encounter Visit Diagnoses + + | Diagnosis | + + | Coronary artery disease involving [place] coronary artery of [place] heart without | | angina pectoris - Primary | + + | Moderate aortic insufficiency Aortic valve disorders | + + | Chronic combined systolic and diastolic heart failure (HCC) Chronic combined systolic | | and diastolic heart failure | + + | Essential hypertension Unspecified essential hypertension | + + | Bradycardia on ECG Other specified cardiac dysrhythmias | + + | History of non-ST elevation myocardial infarction (NSTEMI) Old myocardial infarction | + + | Encounter for monitoring DARREN-inhibitor therapy Encounter for therapeutic drug | | monitoring | + + | CKD (chronic kidney disease), stage III | + + documented in this encounter
--- OUTSIDE RECORDS SUMMARY | ~2019-01-30 | XMS | Encounter Summary ---
Demographics + + + | Address | [address] | | | [place] [address] | + + + | Home Phone | | + + + | Preferred Language | Unknown | + + + | Marital Status | | + + + | Samaritan Affiliation | Unknown | + + + | Race | Unknown | + + + | Ethnic Group | Unknown | + + + Author + + + | Author | [facility] | | | and [place] | + + + | Organization | [facility] | | | and [place] | + + + | Address | Unknown | + + + | Phone | Unavailable | + + + Support + + + + + | Name | Relationship | Address | Phone | + + + + + | Cristina Ashton | ECON | [address] | | | | | [place] | | | | | [address] | | + + + + + Care Team Providers + +------+ + | Care Wine Pasteurizer Name | Role | Phone | + +------+ + | Misha Foy | PCP | | | MD | | | + +------+ + Reason for Visit + + + | Reason | Comments | + + + | Patient Concerns | | + + + Encounter Details +--------+ + + + + | Date | Type | Department | Care Team | Description | +--------+ + + + + | 01/23/ | Telephone | [facility] | Karyn Wren | Patient Concerns | | 2018 | | CARDIOLOGY [facility] | [address] | | | | | [address] | [address] | | | | | [address] [place] | [place] [address] | | | | | [address] | [phone] | | | | | [phone] | | | +--------+ + + + [...] 2020 | Visit | | [address] | | | | | | [address] [place] | | | | | | [address] | | | | | | | | +--------+---------+ + + + documented as of this encounter Visit Diagnoses Not on filedocumented in this encounter"
--- OUTSIDE RECORDS SUMMARY | ~2019-01-30 | XMS | Encounter Summary ---
Demographics + + + | Address | [address] | | | [place] [address] | + + + | Home Phone | | + + + | Preferred Language | Unknown | + + + | Marital Status | | + + + | Mormon Affiliation | Unknown | + + + | Race | Unknown | + + + | Ethnic Group | Unknown | + + + Author + + + | Author | [facility] | | | and [place] | + + + | Organization | [facility] | | | and [place] | + + + | Address | Unknown | + + + | Phone | Unavailable | + + + Support + + + + + | Name | Relationship | Address | Phone | + + + + + | Cristina Ashton | ECON | [address] [facility] | | | | | [place] | | | | | [address] | | + + + + + Care Team Providers + +------+ + | Care Lasting Machine Operator Hand Method Name | Role | Phone | + +------+ + | Misha Foy PCP | | | MD | | | + +------+ + Encounter Details +--------+---------+ + + + | Date | Type | Department | Care Team | Description | +--------+---------+ + + + | 01/05/ | Office | [facility] | Rosas Martinez, | CKD (chronic kidney | | 2019 | Visit | [facility] | LOLA Anyi ABDI | disease), stage III | | | | [address] [facility] | [address] | (Primary Dx) | | | | [address] | [place] [address] | | | | | [place] | [phone] | | | | | [address] | | | | | | [phone] | | | +--------+---------+ + + + Social History [...] + + + | Blood Pressure | 82/50 | 01/05/2019 1241 PDT | + + + + | Pulse | 60 | 01/05/2019 1241 PDT | + + + + | Temperature | - | - | + + + + | Respiratory Rate | - | - | + + + + | Oxygen Saturation | - | - | + + + + | Inhaled Oxygen | - | - | | Concentration | | | + + + + | Weight | 74.8 kg (164 lb 14.4 | 01/05/2019 1241 PDT | | | oz) | | + + + + | Height | 193 cm (6' 4") | 01/05/2019 1241 PDT | + + + + | Body Mass Index | 20.07 | 01/05/2019 1241 PDT | + + + + documented in this encounter Patient Instructions Patient Instructions Rosas Martinez ARNP - 01/05/2019 12:20 PDTCheck BP twice daily bef ore taking lisinopril. If BP is less than 130 systolic then hold lisinopril. documented in this encounter Progress Notes Rosas Martinez ARNP - 01/05/2019 1220 PDTFormatting of this note might be different fro m the original. Patient Active Problem List Diagnosis CKD (chronic kidney disease), stage III Nephrolithiasis Anemia of chronic renal failure Hydronephrosis Vitamin D deficiency Secondary hyperparathyroidism (HCC) Proteinuria BPH (benign prostatic hypertrophy) Hypothyroidism NSTEMI (non-ST elevated myocardial infarction) Hemorrhoids Epigastric pain Sinus bradycardia Physical deconditioning S/P CABG x [address] Foy: I saw your patient Mr. Ashton in the office today with his daughter and her . He is here to F/U on his hemodynamic MARI earlier 2011 following cardiac surgery, his history of stage IIIB-IV chronic kidney disease, chronic anemia, nephrolithiasis, and a chronically hy droneprosed left kidney. He reports he was hospitalized in [place] in mid October 2015 for rectal bleeding, had a col onoscopy, polyp removed and dx with diverticulitis. He is followed by GI in [place]. He tells me he feels dizzy. he has been struggling with hypotension and symptoms. He has been on lisinopril 2.5mg, reports "fuzzy" vision and almost falling a couple of times. He as been on amlodipine and metoprolol in the past and these were stopped for hypotension and bradycardia. he has chronic COLON. No home BP log today. He denies nausea, vomiting, fever, chills, chest pain, leg swelling, palpitations, diarrhea. No dysuria, hematuria or symptoms of UTI. He has 1-2 nightly nocturia. His review of systems was otherwise negative. The following portions of the patient's history were reviewed and updated as appropriate: a llergies, current medications, past medical history, past social history, past surgical hist ory, family history and problem list. Current Outpatient Medications on File Prior to Visit Medication Sig Dispense Refill aspirin 81 MG tablet Take 1 tablet by mouth daily. 30 tablet 11 carbidopa-levodopa (SINEMET) 25-100 mg per tablet Take 1 tablet by mouth 3 (three) time s daily. cholecalciferol (VITAMIN D-3) 1,000 units capsule Take 5,000 Units by mouth daily. (Pat ient taking differently: Take 1,000 Units by mouth Every other day.) ferrous sulfate 325 mg tablet Take 325 mg by mouth daily (with breakfast). IRON PO Take 325 mg by mouth once a week. levothyroxine (SYNTHROID) 50 mcg tablet Take 50 mcg by mouth every morning (before cindy kfast). lisinopril (PRINIVIL, ZESTRIL) 5 mg tablet Take 0.5 tablets by mouth 2 times daily. 30 tablet 11 No current facility-administered medications on file prior to visit. Physical Exam: BP (!) 82/50 | Pulse 60 | Ht 1.93 m (6' 4") | Wt 74.8 kg (164 lb 14.4 oz) | BMI 20.07 k g/m General appearance: Pleasant, not in acute distress. Neck: Supple without tracheal deviation or jugular venous distension. Head and ENT: Head is atraumatic. The oropharynx is without any erythema or thrush. Eyes: Anicteric. The extraocular muscle movements are normal. Lungs: Clear to auscultation bilaterally and resonant. There are no wheezes. Heart: Regular rate and rhythm without any rub, gallop. no murmur. Abdominal exam: Soft and nontender with normal bowel sounds. Musculoskeletal: No costovertebral angle tenderness bilaterally. Extremities: Warm to touch with no leg edema. There is no cyanosis or clubbing. Skin: There are no rashes, petechiae, or ecchymosis. There is no purpura. Neurological: Awake, alert, and oriented to time, place, and person. Takes extra time to answer questions occasionally. Psychiatric: The patient s behavior is normal. Judgment and thought content are normal. Most recent CKD labs: Lab Results Component Value Date CREA 2.02 (A) 01/02/2019 BUN 35 (A) 01/02/2019 NA 139 01/02/2019 K 4.8 01/02/2019 CL 105 01/02/2019 CO2 23 01/02/2019 Lab Results Component Value Date CREA 2.02 (A) 01/02/2019 Lab Results Component Value Date EGFR 38 (A) 07/04/2018 EGFR 35 01/16/2018 EGFR 35 05/25/2016 Lab Results Component Value Date HGB 12.3 (A) 07/04/2018 HGB 13.5 01/16/2018 Lab Results Component Value Date IRON 61 01/21/2014 TIBC 249 01/21/2014 OLD LABORATORY DATA: Laboratory tests have been reviewed from 05/24/2011: hemoglobin 13; po tassium 4.9; calcium 9.3; creatinine 2.05; estimated GFR 31; phosphorus 2.6; uric acid 6.7; iron saturartion 29%; intact PTH 160; 25-hydroxyvitamin D level 28; urinalysis positive for 10 blood, 5 RBC, 0 WBC; spot protein to creatinine ratio 183 mg/g. U CrCl not performed accu rately. OLD LABORATORY DATA: January 11, 2011: Creatinine 2.39, estimated GFR 26, potassium 5.0 , calcium 9.5, hemoglobin 12.8, uric acid 8.2, 25-hydroxy vitamin D 25, intact PTH 127, and urine protein to creatinine ratio 200 mg/g. Urinalysis was positive for 10 blood, 25 leukoc yte esterase, 30 wbc's, 10 rbc's, 1+ squamous cells, and no bacteria. Urine culture did not show any pathologic growth. Going back to May 2007, his creatinine was at 2.54. He is known to have a significant left-sided hydronephrosis with a nonfunctioning left kid itzel that was proved again on a nuclear study on July 31, 2010. ASSESSMENT: Mr. Ashton is a 87 y.o. man with a hemodynamic MARI in 2011 & late stage III chronic kidne y disease in the setting of nephrolithiasis and left-sided hydronephrosis with a practically nonfunctioning left kidney. RENAL FUNCTION: Slightly below baseline BLOOD PRESSURE: Reports low at home and low in the office today he is also symptomatic BLOOD SUGAR: Normal ELECTROLYTES: Acceptable ANEMIA: Improved VITAMIN D: Acceptable with treatment PARATHYROID HORMONE: Normal URIC ACID: Normal PROTEINURIA: Mild URINALYSIS: No UTI or hematuria VOLUME STATUS: Euvolumic. I discussed today with Mr. Ashton the meaning of his chronic kidney disease and the inter action of that with his nephrolithiasis and obstructive uropathy. I stressed the importance of keeping his blood pressure controlled and avoiding getting dehydrated if we are to have a chance at helping preserve his renal function. He showed good understanding. I gave him instructions on how to chart his blood pressure in the appropriate manner at home. He is to call us if they fall outside of the optimal provided range. He will bring his sphygmomanom eter for validation once a year. He will strictly abide by a low sodium, low potassium and a low purine diet. He will avoid all kinds of NSAIDs for analgesia. PLAN: I have asked him to hold lisinopril 2.5 mg until later in the morning and he has checked his blood pressure, then take if systolic is over 130 mmHg and to hold if lower than this. To do this in the afternoon as well. He has close follow-up with his cardiology team. He knows to go to the ER if his HR is lower or having symptoms. Follow up labs include: RFP, Magnesium, CBC, Urine total fetdsil-cs-azhbnedmnz ratio. BP Charting: he will bring me back his home BP charts in 4 weeks. At that time, I will d ecide whether any changes to his vasoactive regimen are warranted. I urged the patient to please call our office with any questions or concerns. He will continue to F/U with your office regularly. He will have labs done before he comes back in [address] Foy for the opportunity to follow up with this patient and be part of the care team. Please do not hesitate to call me at any time with questions or concerns. Truly yours, Rosas DAVILA [facility]ph[facility] 14:2 8 PDTdocumented in this encounter Plan of Treatment +--------+---------+ + + + | Date | Type | Specialty | Care Team | Description | +--------+---------+ + + + | 05/07/ | Office | Nephrology | Elijah Bermeo MD | | | 2020 | Visit | | [address] [facility] | | | | | | [address] [place], [place] | | | | | | [address] | | | | | | | [...] + + documented in this encounter Results LABS - EXTERNAL SCAN (01/02/2019 0:00 PDT) + + + | Narrative | Performed At | + + + | Ordered by an | | | unspecified provider. | | + + + documented in this encounter Visit Diagnoses + + | Diagnosis | + + | CKD (chronic kidney disease), stage III - Primary | + + documented in this encounter
--- OUTSIDE RECORDS SUMMARY | ~2019-01-30 | XMS | Encounter Summary ---
Demographics + + + | Address | [address] | | | [place] [address] | + + + | Home Phone | | + + + | Preferred Language | Unknown | + + + | Marital Status | | + + + | Presybeterian Affiliation | Unknown | + + + | Race | Unknown | + + + | Ethnic Group | Unknown | + + + Author + + + | Author | [facility] | | | and [place] | + + + | Organization | [facility] | | | and [place] | + + + | Address | Unknown | + + + | Phone | Unavailable | + + + Support + + + + + | Name | Relationship | Address | Phone | + + + + + | Cristina Ashton | ECON | [address] [facility] | | | | | [place] | | | | | [address] | | + + + + + Care Team Providers + +------+ + | Care Ssrs Developer Name | Role | Phone | + +------+ + | Misha Foy | PCP | | | MD | | | + +------+ + Reason for Visit + + + | Reason | Comments | + + + | Follow-up, Office | 4 week | | Visit | | + + + Encounter Details +--------+---------+ + + + | Date | Type | Department | Care Team | Description | +--------+---------+ + + + | 12/21/ | Office | [facility] | Karyn Wren | Coronary artery | | 2019 | Visit | C[facility]IOLOGY [facility] | [address] | disease involving | | | | [address] | [address] | [place] coronary | | | | [address] | [place] [address] | artery of [place] | | | | [place] | [phone] | heart without angina | | | | [address] | | pectoris (Primary | | | | [phone] | | Dx); S/P CABG x 4; [...] (moderate) | | | | | | (HCC); Parkinson's | | | | | | disease (HCC) | +--------+---------+ + + + Social History [...] + + + | Blood Pressure | 106/66 | 12/21/2018 1451 PDT | + + + + | Pulse | 64 | 12/21/20181450 PDT | + + + + | Temperature | - | - | + + + + | Respiratory Rate | - | - | + + + + | Oxygen Saturation | 98% | 12/21/20181450 PDT | + + + + | Inhaled Oxygen | - | - | | Concentration | | | + + + + | Weight | 77.6 kg (171 lb) | 12/21/20181450 PDT | + + + + | Height | 193 cm (6' 4") | 12/21/2018 1451 PDT | + + + + | Body Mass Index | 20.81 | 12/21/2018 1451 PDT | + + + + documented in this encounter Patient Instructions Patient Instructions Karyn Wren FNP - 12/21/2018 14:30 PDTI made these changes to medications : Take lisinopril 2.5 mg twice a day , and make sure taking all of your medic ations as ordered on daily basis, and get a pill organizer to help keep you on track See me back in 4 weeks documented in this encounter Progress Notes Karyn Wren FNP - 12/21/2018 1430 PDTFormatting of this note might be different f rom the original. Date of visit: 12/22/2018 Primary Care Physician: Misha Foy MD CHIEF COMPLAINT: Chief Complaint Patient presents with Follow-up, Office Visit 4 week HISTORY OF PRESENT ILLNESS: Mr. Graeme Ashton is an 88 year old man who is here today to follow up on his response to increased dose of lisinopril 5 mg . He is accompanied today by his daughter Joselin who c ontributed to history, and is trying to follow-up with her father with his medications. He is a patient of and last [...] is followed by Dr. Bermeo, and nephrology PATIENT CARE TECHNICIANEd Martinez, and darrell miramontes seen by them on July 07, 2018, and his metoprolol was stopped on that visit due to low h eart rate His current and previous testing and procedures are detailed below . I saw him last on November 16 when his systolic blood pressure was still in the 150-160 mmHg ra nge, and his BMP was stable with GFR of 35, and I increased his lisinopril to 5 mg as his di zziness and lightheadedness have resolved. He reports today that he is more dizzy again, and his systolic blood pressure is much l ower than 106 mmHg. He mostly reports orthostatic lightheadedness and dizziness. He brought his medication bottles to the clinic today, and personally reviewed by me, bu t may have been missing some doses of lisinopril, as it should have been refilled on the h or , and he still had 1 pill left. His daughter is going to help him get a pill organ izer so that he can more closely track his medications, and she is not entirely sure that he may sometimes take his medications twice, as he does not remember it he has taken it.. She reports that his usually helps him, but she has broken her pelvis. She is also going to help him improve his hydration by drinking more water.. She also wonders if some of his dizziness and lightheadedness may also be neurogenic relate d to his Parkinson's, she also has. I did spend some time planing the etiology of his heart failure. He walks daily, and walks one lap around local football field, and tolerates without any shortness of breath or chest pain. He denies any chest pain, palpitations, dyspnea,or syncope. He also denies any signs or sy mptoms of stroke or TIA, or any ER visits, surgery, or hospitalization since last seen, but was treated for an infection with Augmentin. He is a lifelong non-smoker, has stopped drinking caffeine, eyes any use of alcohol, or recreational or [...] visual disturbance or double vision. Respiratory/Sleep:: reports care home chronic cough at night. Denies shortness of [...] walking daily for one lap around [place] [employer] [place] and tolerates. Lives in [place] . , daughter Joselin. Outpatient Medications Prior to Visit Medication Sig Dispense Refill aspirin 81 MG tablet Take 1 tablet by mouth daily. 30 tablet 11 carbidopa-levodopa (SINEMET) 25-100 mg per tablet Take 1 tablet by mouth 3 (three) time s daily. cholecalciferol (VITAMIN D-3) 1,000 units capsule Take 5,000 Units by mouth daily. (Pat ient taking differently: Take 1,000 Units by mouth Every other day.) IRON PO Take 325 mg by mouth once a week. levothyroxine (SYNTHROID) 125 mcg tablet Take 125 mcg by mouth. levothyroxine (SYNTHROID) 50 mcg tablet Take 50 mcg by mouth every morning (before cindy kfast). lisinopril (PRINIVIL, ZESTRIL) 5 mg tablet Take 1 tablet by mouth nightly. 30 tablet 11 omeprazole (PRILOSEC) 20 mg capsule No facility-administered medications prior to visit. PHYSICAL EXAM: Wt Readings from Last 3 Encounters: 12/21/18 77.6 kg (171 lb) 07/13/18 87.1 kg (192 lb) Temp Readings from Last 3 Encounters: No data found for Temp BP Readings from Last 3 Encounters: 12/21/18 106/66 07/13/18 166/78 Pulse Readings from Last 3 Encounters: 12/21/18 64 07/13/18 66 Vital signs: 11/16/2018: Weight 179 pounds. Blood [...] x 3. No focal motor or sensory deficits. PSYCHIATRIC: Appropriate, affect appears normal DATA: Blood tests: Lab Results Component Value Date WBC 4.7 07/04/2018 RBC 4.07 (A) 07/04/2018 HGB 12.3 (A) 07/04/2018 Lab Results Component Value Date NA 140 07/04/2018 K 4.9 07/04/2018 CL 107 07/04/2018 CO2 22 07/04/2018 ANIONGAP 15.9 07/04/2018 GLUF 132 (A) 07/04/2018 BUN 25 (A) 07/04/2018 BCR 14.5 07/04/2018 EGFR 38 (A) 07/04/2018 [...] large-caliber vessel with an ostial 85% stenosis. Veo-bc-ehdzku LA D right at the bifurcation of [...] a proximal 80% s tenosis. CAB10/21/2011: ( [place]) :X 4: LEW-LAD, saphenous vein graft-diagonal, saphenous [...] clot, no ASD, no VSD ECHO: 10/19/2011 ([facility]): Sinus rhythm. Suboptimal study. EF 45-50%. LV [...] voltage QRS karoline ds II. Old inferior AZ. rate 65 bpm, UT 258 ms, QRS 100 ms, QTC 451 ms, tracing personally reviewed by me EK11/16/2018: Sinus rhythm with first-degree AV block, PAC's. H QRS, old inferior AZ. R ate 64 bpm, UT 262 ms, QRS 100 ms, QTC 460 ms, tracing personally reviewed by me and antonio vela morphology to previous EKG [...] 112, BUN 34, creatinine 1.85, GFR 35. ASSESSMENT & PLAN: He was here today with his daughter to follow-up on his response to lisinopril 5 mg daily . He had previously stopped all of his other blood pressure medication for dizziness. He has problems as detailed below His systolic blood pressure is considerably lower today as discussed in HPI, with systoli c pressure of 106, and his weight is also down 21 pounds since June, and he is complaining of some dizziness and lightheadedness again. His BMP is stable as detailed above, and GFR remains at 35 since May. I discussed this with his daughter and him today, and that we were limited on our ability t o treat his heart failure due to his frailness, and low heart rate. I have changed his lisinopril to 2.5 mg twice daily to see if he tolerates this better. I have also encouraged him to stay well-hydrated, and his daughter is going to help him dri nk more water, and make sure he eats regularly. She is also going to get him a pill organiz er, as he may be missing some doses of medications, or taking more than once during the day, as discussed. In HPI. For his cardiac medications, he should continue aspirin 81 mg daily for coronary artery d isease with coronary artery bypass grafts, and now lisinopril 2.5 mg BID for hypertension, a nd heart failure. I will initiate a statin in the future for his history of coronary artery bypass graft, but do not want to make too many medication changes at the time and neither does he. I see him back . 1. 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 Moderate aortic insufficiency 4. History of non-ST elevation myocardial infarction (NSTEMI) 5. Chronic systolic heart failure (HCC) 6. Bradycardia on ECG 7. Essential hypertension 8. Encounter for monitoring DARREN-inhibitor therapy 9. Chronic kidney disease, stage III (moderate) (HCC) 10. Parkinson's disease (HCC) No orders of the defined types were [...] past surgical history. Problem list. Moe DAVILA [facility] Cardiology 12/22/2018 documente d in this encounter Plan of Treatment +--------+---------+ + + + | Date | Type | Specialty | Care Team | Description | +--------+---------+ + + + | 05/07/ | Office | Nephrology | Elijah Bermeo MD | | | 2019 | Visit | | [address] [facility] | | | | | | [address] [facility] [place] | | | | | | [address] | | | | | | | | +--------+---------+ + + + documented as of this encounter Visit Diagnoses + + | Diagnosis | + + | Coronary artery disease involving [place] coronary artery of [place] heart without | | angina pectoris - Primary | + + | S/P CABG x 4 Postsurgical aortocoronary bypass status | + + | Moderate aortic insufficiency Aortic valve disorders | + + | History of non-ST elevation myocardial infarction (NSTEMI) Old myocardial infarction | + + | Chronic systolic heart failure (HCC) Chronic systolic heart failure | + + | Bradycardia on ECG Other specified cardiac dysrhythmias | + + | Essential hypertension Unspecified essential hypertension | + + | Encounter for monitoring DARREN-inhibitor therapy Encounter for therapeutic drug | | monitoring | + + | Chronic kidney disease, stage III (moderate) (HCC) Chronic kidney disease, Stage III | | (moderate) | + + | Parkinson's disease (HCC) Paralysis agitans | + + documented in this encounter
--- OUTSIDE RECORDS SUMMARY | ~2019-01-30 | XMS | Encounter Summary ---
Demographics + + + | Address | [address] | | | [place] [address] | + + + | Home Phone | | + + + | Preferred Language | Unknown | + + + | Marital Status | | + + + | Presybeterian Affiliation | Unknown | + + + | Race | Unknown | + + + | Ethnic Group | Unknown | + + + Author + + + | Author | [facility] | | | and [place] | + + + | Organization | [facility] | | | and [place] | + + + | Address | Unknown | + + + | Phone | Unavailable | + + + Support + + + + + | Name | Relationship | Address | Phone | + + + + + | Cristina Ashton | ECON | [address] [facility] | | | | | [place] | | | | | [address] | | + + + + + Care Team Providers + +------+ + | Care Online Content Editor Name | Role | Phone | + +------+ + | Misha oFy PCP | | | MD | | | + +------+ + Reason for Visit +--------+ + | Reason | Comments | +--------+ + | Other | Appointment reminder call | +--------+ + Encounter Details +--------+ + + + + | Date | Type | Department | Care Team | Description | +--------+ + + + + | 01/02/ | Telephone | [facility] | Rosas Martinez, | Other (Appointment | | 2019 | | NEPHROLOGY [facility] | LOLA ABDI | reminder call) | | | | [address] | [address] | | | | | [address] [place] | [place] [address] | | | | | [address] | [phone] | | | | | [phone] | | | +--------+ + + + [...] 2020 | Visit | | [address] [facility] | | | | | | [address] [facility] | | | | | | [address] | | | | | | | | +--------+---------+ + + + documented as of this encounter Visit Diagnoses Not on filedocumented in this encounter"
--- OUTSIDE RECORDS SUMMARY | ~2019-01-30 | XMS | Encounter Summary ---
Demographics + + + | Address | [address] | | | [place] [address] | + + + | Home Phone | | + + + | Preferred Language | Unknown | + + + | Marital Status | | + + + | Caodaism Affiliation | Unknown | + + + | Race | Unknown | + + + | Ethnic Group | Unknown | + + + Author + + + | Author | [facility] | | | and [place] | + + + | Organization | [facility] | | | and [place] | + + + | Address | Unknown | + + + | Phone | Unavailable | + + + Support + + + + + | Name | Relationship | Address | Phone | + + + + + | Cristina Ashton | ECON | [address] [facility] | | | | | [place] | | | | | [address] | | + + + + + Care Team Providers + +------+ + | Care Animal Physiology Teacher Name | Role | Phone | + [...] + + | 01/02/ | Telephone | [facility] | Rosas Martinez, | Other (Appointment | | 2019 | | NEPHROLOGY IG[place] | LOLA ABDI | reminder call) | | | | [address] | [address] | | | | | [address] [place] | [place] [address] | | | | | [address] | [phone] | | | | | [phone] | | | +--------+ + + + [...] 2020 | Visit | | [address] [facility] | | | | | | [address] [facility] | | | | | | [address] | | | | | | | | +--------+---------+ + + + documented as of this encounter Visit Diagnoses Not on filedocumented in this encounter"
--- OUTSIDE RECORDS SUMMARY | ~2019-01-30 | XMS | Encounter Summary ---
Demographics + + + | Address | [address] | | | [place] [address] | + + + | Home Phone | | + + + | Preferred Language | Unknown | + + + | Marital Status | | + + + | Adventist Affiliation | Unknown | + + + | Race | Unknown | + + + | Ethnic Group | Unknown | + + + Author + + + | Author | [facility] | | | and [place] | + + + | Organization | [facility] | | | and [place] | + + + | Address | Unknown | + + + | Phone | Unavailable | + + + Support + + + + + | Name | Relationship | Address | Phone | + + + + + | Cristina Ashton | ECON | [address] [facility] | | | | | [place] | | | | | [address] | | + + + + + Care Team Providers + +------+ + | Care Director Global Intelligence Name | Role | Phone | + [...] + + | 01/23/ | Telephone | [facility] | Karyn Wren | Patient Concerns | | 2018 | | CARDIOLOGY IGOR | [address] | | | | | [address] | [address] | | | | | [address] [place] [address] | [place] [address] | | | | | [address] | [phone] | | | | | [phone] | | | +--------+ + + + [...] 2020 | Visit | | [address] [facility] | | | | | | [address] [place] | | | | | | [address] | | | | | | | | +--------+---------+ + + + documented as of this encounter Visit Diagnoses Not on filedocumented in this encounter"
--- OUTSIDE RECORDS SUMMARY | ~2019-01-30 | XMS | Clinical Summary ---
Demographics + + + | Address | [address] | | | [place] [address] | + + + | Home Phone | | + + + | Preferred Language | Unknown | + + + | Marital Status | | + + + | Confucianist Affiliation | Unknown | + + + | Race | Unknown | + + + | Ethnic Group | Unknown | + + + Author + + + | Author | [facility] | | | and [place] | + + + | Organization | [facility] | | | and [...] [place] | | | | | [address] | | + + + + + Care Team Providers + +------+ + | Care Value Advisor Name | Role | Phone | + [...] + + | 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 | | + [...] involving | | | | | | [place] coronary | | | | | | artery of [place] | | | | | | heart [...] | | 2019 | on | | REGRADER | 01/02/19) | +--------+ + + + + | 01/05/ | Office | Nephrology | Rosas Martinez, | CKD (chronic kidney | | 2019 | Visit | | CLOSER ON | disease), stage III | | | | | | (Primary Dx) | +--------+ + + + + | 01/05/ | Documentati | Nephrology | Nicolas, | Results (01/02/19) | | 2019 | on | | Herminio Abreu | | | | | | Secret Service Agent | | +--------+ + + + + | 01/02/ | Telephone | Nephrology | Rosas Martinez, | Other (Appointment | | 2018 | | | CLOSER ON | reminder call) | +--------+ + + + + | 12/21/ | Office | Cardiology | Karyn Wren | Coronary artery | | 2018 | Visit | | [address] | disease involving | | | | | | [place] coronary | | | | | | artery of [place] | | | | | | heart [...] (moderate) | | | | | | ([facility]); Parkinson's | | | | | | disease ([facility]) | +--------+ + + + + | 11/16/ | Orders Only | Cardiology | Karyn Wren | Chronic kidney | | 2019 | | | [address] | disease, stage III | | | | | | (moderate) ([facility]); | | | | | | Proteinuria; [...] 2020 | Visit | | [address] [facility] | | | | | | [address] [place] | | | | | | [address] | | | | | | | [...] | | 2015 | 5 | | [id number]: Qty: 1 on | | | MEDL | | | /[id number] | | 10/21/2011 | | | | [...] +--------+ +---------+--------+ | MEDICARE | MEDICA | [id number] | | [phone] | | Medica | | | RE | | 999-Pr | 5 | | re | | | PART A | | esent | | | | | | AND B | | | | | | + +--------+ +--------+ +---------+--------+ | | TRICAR | [id number] | 12/03/19 | [phone] | | Indemn [...] | | al/Abhijeet | | 1931 | [phone] | [place] | | | deuce | | | 5 (Home) | [address] | + +--------+ +--------+ + + Advance Directives Patient has advance care planning documents on file. For more information, please contact:[facility] [place] [address]
--- OUTSIDE RECORDS SUMMARY | ~2019-01-30 | XMS | Encounter Summary ---
Demographics + + + | Address | [address] | | | [place] [address] | + + + | Home Phone | | + + + | Preferred Language | Unknown | + + + | Marital Status | | + + + | Christianity Affiliation | Unknown | + + + | Race | Unknown | + + + | Ethnic Group | Unknown | + + + Author + + + | Author | [facility] | | | and [place] | + + + | Organization | [facility] | | | and [place] | + + + | Address | Unknown | + + + | Phone | Unavailable | + + + Support + + + + + | Name | Relationship | Address | Phone | + + + + + | Cristina Ashton | МАРИНА | [address] [facility] | | | | | [place] | | | | | [address] | | + + + + + Care Team Providers + +------+ + | Care Shroud Line Tier Name | Role | Phone | + +------+ + | Misha Foy PCP | | | MD | | | + +------+ + Encounter Details +--------+ + + + + | Date | Type | Department | Care Team | Description | +--------+ + + + + | 11/16/ | Orders Only | [facility] | Karyn Wren | Chronic kidney | | 2019 | | CARDIOLOGY [place] | [address] | disease, stage III | | | | [address] | [address] | (moderate) ([facility]); | | | | [address] | [place] [address] | Proteinuria; | | | | [place], [place] | [phone] | Bradycardia; | | | | [address] | | Encounter for | | | | [phone] | | therapeutic drug | | | [...] | | | | | | [address] [facility] [place] | | | | | | [address] | | | | | | | [...] 01/07/2019, Expires: | | | | (moderate) ([facility]) | 07/08/2019 | | | | Proteinuria | | | | | Bradycardia | | + +--------+ + + | CBC with Differential | Routin | Chronic kidney | Expected: | | | e | disease, stage III | 01/07/2019, Expires: | | | | (moderate) ([facility]) | 07/08/2019 | | | | Proteinuria | | | | | Bradycardia | | + +--------+ + + | Magnesium | Routin | Chronic kidney | Expected: | | | e | disease, stage III | 01/07/2019, Expires: | | | | (moderate) ([facility]) | 07/08/2019 | | | | Proteinuria | | | | | Bradycardia | | + +--------+ + + | Uric Acid | Routin | Chronic kidney | Expected: | | | e | disease, stage III | 01/07/2019, Expires: | | | | (moderate) ([facility]) | 01/07/2019 | | | | Proteinuria | | | | | Bradycardia | | + +--------+ + + | Protein/Creatinine Ratio, Urine | Routin | Chronic kidney | Expected: | | | e | disease, stage III | 01/07/2019, Expires: | | | | (moderate) ([facility]) | 07/08/2019 | | | | Proteinuria | | | | | Bradycardia | | + +--------+ + + | Basic Metabolic Panel | Routin | Chronic kidney | Expected: | | | e | disease, stage III | 11/30/2018, Expires: | | | | (moderate) ([facility]) | 11/16/2019 | | | | Encounter [...]
--- OUTSIDE RECORDS SUMMARY | ~2019-01-30 | XMS | Encounter Summary ---
Demographics + + + | Address | [address] | | | [place] [address] | + + + | Home Phone | | + + + | Preferred Language | Unknown | + + + | Marital Status | | + + + | Anabaptist Affiliation | Unknown | + + + | Race | Unknown | + + + | Ethnic Group | Unknown | + + + Author + + + | Author | [facility] | | | and [place] | + + + | Organization | [facility] | | | and [place] | + + + | Address | Unknown | + + + | Phone | Unavailable | + + + Support + + + + + | Name | Relationship | Address | Phone | + + + + + | Cristina Ashton | ECON | [address] [facility] | | | | | [place] | | | | | [address] | | + + + + + Care Team Providers + +------+ + | Care Hand Screen Printer Name | Role | Phone | + [...] + + | 01/22/ | Office | [facility] | Karyn Wren | Coronary artery | | 2019 | Visit | CARDIOLOGY [place] | [address] | disease involving | | | | [address] | [address] | [place] coronary | | | | [address] | [place] [address] | artery of [place] | | | | [place] | [phone] | heart without angina | | | | [address] | | pectoris (Primary | | | | [phone] | | Dx); Moderate aortic | | [...] is followed by Dr. 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 Lives in [place] . , ,helps him. daughter Joselin ,has [...] large-caliber vessel with an ostial 85% stenosis. Ejd-iq-tknafc LA D right at the bifurcation of [...] clot, no ASD, no VSD ECHO: 10/19/2011 ([facility]): Sinus rhythm. Suboptimal study. EF [...] voltage QRS karoline ds II. 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 rate 65 bpm, ID 258 ms, QRS 100 ms, QTC 451 ms, tracing personally reviewed by me EK11/16/2018: Sinus rhythm with first-degree AV block, PAC's. H QRS, old inferior UT. R ate 64 bpm, ID 262 ms, QRS 100 ms, QTC 460 ms, tracing personally reviewed by vt and antonio vela morphology to previous EKG [...] his . 1. Coronary artery disease involving [place] coronary artery of [place] heart without angina pectoris 2. Moderate aortic [...] past surgical history. Problem list. Moe DAVILA [facility] Cardiology 01/23/2019 documente d in this encounter Plan of Treatment +--------+---------+ + + + | Date | Type | Specialty | Care Team | Description | +--------+---------+ + + + | 05/07/ | Office | Nephrology | Elijah Bermeo MD | | | 2019 | Visit | | [address] [facility] [address] [facility] | | | | | | [address] [place], [place] | | | | | | [address] | | | | | | | | +--------+---------+ + + + documented as of this encounter Visit Diagnoses + + | Diagnosis | + + | Coronary artery disease involving [place] coronary artery of [place] heart without | | angina pectoris - [...]
--- OUTSIDE RECORDS SUMMARY | ~2019-01-30 | XMS | Encounter Summary ---
Demographics + + + | Address | [address] | | | [place] [address] | + + + | Home Phone | | + + + | Preferred Language | Unknown | + + + | Marital Status | | + + + | Scientology Affiliation | Unknown | + + + | Race | Unknown | + + + | Ethnic Group | Unknown | + + + Author + + + | Author | [facility] | | | and [place] | + + + | Organization | [facility] | | | and [place] | + + + | Address | Unknown | + + + | Phone | Unavailable | + + + Support + + + + + | Name | Relationship | Address | Phone | + + + + + | Cristina Ashton | МАРИНА | [address] [facility] | | | | | [place] | | | | | [address] | | + + + + + Care Team Providers + +------+ + | Care Android Architect Name | Role | Phone | + +------+ + | Misha Foy | PCP | | | MD | | | + +------+ + Reason for Visit +--------+ + | Reason | Comments | +--------+ + | Other | Edmundo. 01/02/19 | +--------+ + Encounter Details +--------+ + + + + | Date | Type | Department | Care Team | Description | +--------+ + + + + | 01/08/ | Documentati | [facility] | Yamilet Cole, | Other (Edmundo. | | 2019 | on | CARDIOLOGY [place] | [facility] | 01/02/19) | | | | [address] | | | | | | | | | | | | [address] | | | | | | [phone] | | | +--------+ + + + [...] 2020 | Visit | | [address] [facility] | | | | | | [address] [place] | | | | | | [address] | | | | | | | | +--------+---------+ + + + documented as of this encounter Visit Diagnoses Not on filedocumented in this encounter"
--- OUTSIDE RECORDS SUMMARY | ~2019-01-30 | XMS | Encounter Summary ---
Demographics + + + | Address | [address] | | | [place] [address] | + + + | Home Phone | | + + + | Preferred Language | Unknown | + + + | Marital Status | | + + + | Restorationism Affiliation | Unknown | + + + | Race | Unknown | + + + | Ethnic Group | Unknown | + + + Author + + + | Author | [facility] | | | and [place] | + + + | Organization | [facility] | | | and [place] | + + + | Address | Unknown | + + + | Phone | Unavailable | + + + Support + + + + + | Name | Relationship | Address | Phone | + + + + + | Cristina Ashton | МАРИНА | [address] [facility] | | | | | [place] | | | | | [address] | | + + + + + Care Team Providers + +------+ + | Care Managing Director Atlas Name | Role | Phone | + [...] + + | 01/08/ | Documentati | [facility] | Yamilet Cole, | Other (Edmundo. | | 2019 | on | CARDIOLOGY [place] | [facility] | 01/02/19) | | | | [address] | | | | | | [place], [place] | | | | | | [address] | | | | | | [phone] | | | +--------+ + + + [...] 2020 | Visit | | [address] [facility] | | | | | | [address] [place] | | | | | | [address] | | | | | | | | +--------+---------+ + + + documented as of this encounter Visit Diagnoses Not on filedocumented in this encounter"
--- OUTSIDE RECORDS SUMMARY | ~2019-01-30 | XMS | Encounter Summary ---
Demographics + + + | Address | [address] | | | [place] [address] | + + + | Home Phone | | + + + | Preferred Language | Unknown | + + + | Marital Status | | + + + | Quaker Affiliation | Unknown | + + + | Race | Unknown | + + + | Ethnic Group | Unknown | + + + Author + + + | Author | [employer] (Historical as of | | | 12-16-18) | + + + | Organization | [facility] [employer] (Historical as of | | | 12-16-18) | + + + | Address | Unknown | + + + | Phone | Unavailable | + + + Support + + + + + | Name | Relationship | Address | Phone | + + + + + | Cristina Ashton | ECON | [address] [facility] [facility] | | | | | [place] | | | | | [address] | | + + + + + Care Team Providers + +------+ + | Care Air Director Name | Role | Phone | + +------+ + | Sahara Bourgeois MD | PCP | | + +------+ + Reason for Visit + + + | Reason | Comments | + + + | Follow-up | 2 week | + + + Encounter Details +--------+---------+ + + + | Date | Type | Department | Care Team | Description | +--------+---------+ + + + | 11/16/ | Office | [facility] | Karyn Wren | Coronary artery | | 2019 | Visit | Cardiology [place] | [address] | disease involving | | | | [address] | [address] | [place] coronary | | | | [facility] [address] | [place] [address] | artery of [place] tribes | | | | [place] [address] | [phone] | heart without angina | | | | [phone] | | pectoris (Primary | | | [...] | | | | | therapy | +--------+---------+ + + + Social History [...] on file | | + + + as of this encounter Last Filed Vital [...] PM PDT | + + + + in this encounter Instructions Patient Instructions - Karyn WrenLOLA - 11/16/2018 2:30 PM PDTDrink two 8 oz glasses of water with each meal, to keep your kidneys happy I have increased your lisinopril to 5 mg and continue to take at night , and can use two of current of 2.5 mg pills to use up the pills you. I sent in a new prescription to linh fo r 5 mg pills Get another non fasting lab done in 3 weeks, and see me in one month Bring pill bottles to all clinic visits, to make sure we are all talking about the same med ications in this encounter Progress Notes Karyn WrenLOLA - 11/16/2018 2:30 PM PDTFormatting of this note may be differen t from the original. Date of visit: 11/16/2018 Primary Care Physician: SAHARA BOURGEOIS CHIEF COMPLAINT: Chief Complaint Patient presents with Follow-up 2 week HISTORY OF PRESENT ILLNESS: Mr. Graeme Ashton is an 88 year old man who is here today to follow up on his respons e to lisinopril which was restarted by Dr. Martinez when he saw her last He is a patient of and last [...] is followed by Dr. 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 He reports today that he tolerated lisinopril 2.5 mg well, and has not had any further problems with ongoing dizziness or lightheadedness that he had with amlodipine. He does rep ort occasional mild orthostatic lightheadedness if he goes up the stairs, or rises suddenly out of a chair. He walks daily, and walks one lap around local football field, and tolerates without any shortness of breath or chest pain. He denies any chest pain, palpitations, dyspnea,or syncope. He also denies any signs or sy mptoms of stroke or TIA, or any illness, surgery, or hospitalization since last seen. He is a lifelong non-smoker, has stopped drinking caffeine, eyes any use of alcohol, or recreational or illicit drugs. He is retired , and used to be in the [employer] REVIEW OF SYSTEMS: Negative except for pertinent items noted in HPI. Constitutional: Denies fatigue or unexplained weight loss. Appetite is good. Weight is st able. Denies night sweats fevers or chills HENT: Denies nosebleeds. Denies hearing problems. Denies dysphagia Eyes:Hx bilateral cataract removal. Denies visual disturbance or double vision. 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 Denies shortness of breath. Denies hemoptysis or excessive sputum production. Denies snoring, orthopnea, PND. Cardiovascular: Mild pedal edema Denies chest pain, palpitations . Denies history of rheu matic fever. Denies claudication . Gastrointestinal: GERD. Denies nausea, vomiting, abdominal pain and blood in stool. 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 BPH denies hematuria. Musculoskeletal: Denies myalgias, back pain and arthralgias. Skin: Denies color change. Denies rash or lesions Neurological: Parkinson's.Burning And tingling to feet in the night Denies history of stro ke/Transient ischemic attack.Denies history of seizures. Denies dizziness, syncope and numbn ess. Hematological/Oncology .anemia of chronic renal failure. bruises easily. Denies bleeding Denies history of cancer Endocrine: Hypothyroidism.Denies diabetes Denies excessive thirst or hunger. Psychiatric/Behavioral: denies any history of depression or anxiety or other psychiatric il lness. Vaccines: Current on flu vaccine. Current on pneumonia vaccine. Habits/Social : Denies history of smoking. Denies EtOH use. Drinks no caffeine daily . D enies recreational or illicit drug use. Exercises with walking daily for one lap around fo [employer] [place] and tolerates. Lives in [place] . , Outpatient Medications Prior to Visit Medication Sig Dispense Refill aspirin 81 MG tablet Take 1 tablet by mouth daily. 30 tablet 11 carbidopa-levodopa (SINEMET) 25-100 MG per tablet Take 1 tablet by mouth 3 (three) time s daily. Cholecalciferol 1000 UNITS capsule Take 5,000 Units by mouth daily. IRON PO Take 325 mg by mouth once a week. levothyroxine (SYNTHROID, LEVOTHROID) 125 MCG tablet Take 125 mcg by mouth. omeprazole (PRILOSEC) 20 MG capsule lisinopril (ZESTRIL) 2.5 MG tablet Take 1 tablet by mouth daily. 30 tablet 11 VITAMIN E PO Take by mouth. No facility-administered medications prior to visit. PHYSICAL EXAM: Wt Readings from Last 3 Encounters: 11/16/18 81.3 kg (179 lb 4.8 oz) 10/26/18 80.7 kg (178 lb) 07/13/18 87.1 kg (192 lb) Temp Readings from Last 3 Encounters: 05/31/16 96 F (35.6 C) (Temporal) 11/17/15 97 F (36.1 C) (Temporal) 01/03/15 97.7 F (36.5 C) (Tympanic) BP Readings from Last 3 Encounters: 11/16/18 150/72 10/26/18 170/78 07/13/18 166/78 Pulse Readings from Last 3 Encounters: 11/16/18 64 10/26/18 73 07/13/18 66 GENERAL: Well developed, well nourished, in no distress. Appears approximately stated age . HEENT: Normocephalic, atraumatic. EYES: PERRL, EOM normal. [...] 4.07 (A) 07/04/2018 HGB 12.3 (A) 07/04/2018 HCT 37.4 (A) 07/04/2018 PLT 169 07/04/2018 Lab Results Component Value Date NA 140 07/04/2018 K 4.9 07/04/2018 K 5.0 10/21/2011 CL 107 07/04/2018 CO2 22 07/04/2018 ANIONGAP 15.9 07/04/2018 GLUF 132 (A) 07/04/2018 BUN 25 (A) 07/04/2018 CREATININE 1.73 (A) 07/04/2018 BCR 14.5 07/04/2018 CA 9.3 07/04/2018 CA 8.5 11/12/2015 EGFR 38 (A) 07/04/2018 Lab Results Component Value Date CHOL 211 (A) 01/21/2014 TRIG 161 (A) 01/21/2014 LDL 142 (A) 01/21/2014 GLUF 132 (A) 07/04/2018 HGBA1C 4.6 10/22/2011 Lab Results Component Value Date CKTOTAL 325 10/19/2011 No results found for: METF, NMETFX, TFNMFX, [id number], [id number], TOTEPI CARDIAC PROCEDURES/IMAGING Last angiogram 10/19/2011: 3 Vessel coronary artery disease to LAD, OM ,right PDA. Mildly elevated LVEDP., CABG recommended. CORONARY ANGIOGRAPHY: Left Main: distal 30% to 40% plaqu e. LAD: heavily calcified to proximal and mid segment. First diagonal branch small vessel, 2nd diagonal branch was a large-caliber vessel with an ostial 85% stenosis. Hnr-nf-yffehs LA D right at the bifurcation of [...] blood flow is antegrade bilaterally.RIGHT COMMON CAROTID: Nodular plaque is vis ualized in the right common carotid bifurcation, without flow-limiting stenosis. The Doppler velocities are normal throughout right carotid bifurcation and the right vertebral blood fl ow is antegrade. Right Peak Systolic Velocities (cm/sec)CCA-PROX: 79 CCA-DIST :68 ICA-MD OX : 72 ICA-MID : 71 ICA-DIST : 75 ECA-PROX: 110 Vertebral : 46 LEFT COMMON CAROTID :Mild atherosclerotic plaque is visualized in the left common carotid bifurcation, without f low limiting stenosis. Doppler velocities are normal throughout left carotid bifurcation and the left vertebral blood flow is antegrade. Left Peak Systolic Velocities (cm/sec) CCA-PROX :78 CCA-DIST: 77 ICA-PROX :73 ICA-MID : 71 ICA-DIST :64 ECA-PROX : 78 Vertebral :49 ECHO Echo: 10/02/2018: ([facility]) sinus [...] clot, no ASD, no VSD ECHO: 10/19/2011 ([facility]): Sinus rhythm. Suboptimal study. EF 45-50%. [...] range 47 -76 bpm. 1.39% burden of PVCs ( 1279 PVCs were recorded;1.39% burden o f PVCs, 13 ventricular couplets and one triplet.) No AV conduction abnormalities. No isch emia. Normal circadian rhythm. unspecified symptoms associated with sinus bradycardia.No at rial fibrillation/Flutter letter. One missed beat. Supraventricular burden 0.06%.( 35 PAC s were recorded, 9 atrial couplets, and one triple) EK07/13/2018:Normal sinus rhythm, 1st degree AV block,occasional PVC low voltage QRS karoline ds II. Old inferior HI. rate 65 bpm, MD 258 ms, QRS 100 ms, QTC 451 ms, tracing personally reviewed by me EK11/16/2018: Sinus rhythm with first-degree AV block, PACs. H QRS, old inferior HI. Ra te 64 bpm, MD 262 ms, QRS 100 ms, QTC 460 ms, tracing personally reviewed by and brandi r morphology to previous EKG in June 2018 LABS Labs: 07/13/2018: CBC: WBC 4.7, RBC 4.07, hemoglobin 12.3, hematocrit 37.4, platelets 169. CMP: Sodium 140, potassium 4.9, chloride 107, glucose 132, BUN 25, creatinine 1.73, albumin 3.6, GFR 38 uric acids 6.7 Labs: 05/09/2018:BMP : Sodium 138, potassium 4.3, chloride 105, glucose 147, calcium 9.5, BU N 30, creatinine 1.86, GFR 35 ASSESSMENT & PLAN: He was here today to follow-up on his response to lisinopril 2.5 mg daily, after he had sto pped all of his other blood pressure medication, He has problems as detailed below His blood pressure is better controlled today on lisinopril 2.5 mg which he takes in the ev ening, and he has had no further symptoms of lightheadedness or dizziness on an ongoing basi s, though occasionally complains of occasional orthostatic lightheadedness with position ana maria nges, or if going upstairs. His BMP performed on November 06 is detailed above, and shows fairly stable renal function wi GFR of 35. His EKG KG performed in the clinic today shows stable sinus rhythm with first-degree AV block at 64 bpm, and is detailed above. I discussed with him that his blood pressure was improved, and his renal function fairly stable, so that I was going to increase his lisinopril to help his heart function to 5 mg, and to continue taking it at night. He also reports he does not always drink very much water, and I have encouraged him to drin k two 8 ounce glasses of water with every meal, which will give him 48 ounces of water for t he day, which will help his kidney function and general hydration, and decrease lightheadedn ess. I also gave him a teaching handout on heart failure, and demonstrated him how to read e labels to watch for high sodium foods. Cardiac medications, he should continue aspirin 81 mg daily for coronary artery disease wit h coronary artery bypass grafts, and now lisinopril 5 mg nightly for hypertension, and heart failure. I will initiate a statin in the future for his history of coronary artery bypass graft, but do not want to make too many medication changes at the time I see him back in approximately 1 month, and have ordered a repeat BMP to be performed prio r to seeing me back. 1. S/P CABG x 4 2. Coronary artery disease involving [place] coronary artery of [place] heart without angina pectoris 3. Moderate aortic insufficiency 4. Chronic systolic heart failure (HCC) 5. Sinus bradycardia 6. Essential hypertension 7. CKD (chronic kidney disease), stage III 8. History of non-ST elevation myocardial infarction (NSTEMI) 9. Bradycardia on ECG 10. Encounter for monitoring DARREN-inhibitor therapy Orders Placed This Encounter Procedures Basic metabolic panel Electrocardiogram, 12-lead The following portions of the patient's history were personally reviewed by me and updated as appropriate: EKG tracings, other specialty provider and PCP notes,any Hospital admission and discharge summaries, any ER records , current and previous cardiac testing and procedure reports and d saniya, home heart rate and blood pressure log, medication bottles NOT brought to visit today Allergies, current medications.labs Family history, past medical history, past social history, past surgical history. Problem list. LOLA Escamilla [facility] Cardiology 11/16/2018in this encounter Plan of Treatment + +--------+ + + | Name | Priori | Associated Diagnoses | Order Schedule | | | ty | | | + +--------+ + + | Basic metabolic panel | Routin | CKD (chronic | Expected: | | | e | kidney disease), | 11/30/2018, Expires: | | | | stage III Encounter | 11/16/2019 | | | | for monitoring | | | | | DARREN-inhibitor | | | | | therapy | | + +--------+ + + as of this encounter Procedures + +--------+ [...] the | | | | PDT | [place] coronary | results section. | | | | | artery of [place] and [place] | | | | | | heart [...] | | + +--------+ + + + in this encounter Results EKG STANDARD 12 LEAD (11/16/2018 2:43 PM) + [...] + + + + | Calculated P [place] | 43 | degrees | [facility] EKG | + + + + + | Calculated R [place] | -45 | degrees | [facility] EKG | + + + + + | Calculated T [place] | 94 | degrees | [facility] EKG | + + + + + | Diagnosis | Please refer to | | [facility] EKG | | | Providers office visit | | | | | note for Providers | | | | | Interpretation.Confirmed | | | | | by [facility] [place] Read Only, | | | | | LORENA Gilmore ([id number]), | | | | | scientific editor Julio Smith | | | | | ([id number]) on 11/16/2018 | | | | | 3:02:55 PM | | | + + + + + + + + + + | Performing | Address | City/State/Zipcode | Phone Number | | Organization | | | | + + + + + | [facility] | [address] | [place] [address] | | + + + + + in this encounter Visit Diagnoses + + | Diagnosis | + + | Coronary artery disease involving ass[place] and [place] coronary artery of [place] tribes heart without | | angina pectoris - Primary | + + | S/P CABG x 4 | + + | Postsurgical aortocoronary bypass status | + + | Chronic combined systolic and diastolic heart failure (HCC) | + + | Chronic combined systolic and diastolic heart failure | + + | Moderate aortic insufficiency | + + | Aortic valve disorders | + + | Sinus bradycardia | + + | Other specified cardiac dysrhythmias | + + | Essential hypertension | + + | Unspecified essential hypertension | + + | CKD (chronic kidney disease), stage III | + + | History of non-ST elevation myocardial infarction (NSTEMI) | + + | Old myocardial infarction | + + | Bradycardia on ECG | + + | Other specified cardiac dysrhythmias | + + | Encounter for monitoring DARREN-inhibitor therapy | + + | Encounter for therapeutic drug monitoring | + +
--- OUTSIDE RECORDS SUMMARY | ~2019-01-30 | XMS | Encounter Summary ---
Demographics + + + | Address | [address] | | | [place] [address] | + + + | Home Phone | | + + + | Preferred Language | Unknown | + + + | Marital Status | | + + + | Sikh Affiliation | Unknown | + + + | Race | Unknown | + + + | Ethnic Group | Unknown | + + + Author + + + | Author | [employer] (Historical as of | | | 12-16-18) | + + + | Organization | [facility] [employer] (Historical as of | | | 12-16-18) | + + + | Address | Unknown | + + + | Phone | Unavailable | + + + Support + + + + + | Name | Relationship | Address | Phone | + + + + + | Cristina Ashton | ECON | [address] [facility] | | | | | [place] | | | | | [address] | | + + + + + Care Team Providers + +------+ + | Care Test Development Engineer Name | Role | Phone | + [...] | | 2019 | Visit | Cardiology [place] | [address] | disease involving | | | | [address] | [address] F | [place] coronary | | | | [facility] [address] | [place] [address] | artery of [place] | | | | [place] [address] | [phone] | heart without angina | | | | [phone] | | pectoris (Primary | | | [...] is followed by Dr. 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 Denies shortness of [...] walking daily for one lap around fo [employer] field and tolerates. Lives in [place] . , Outpatient Medications Prior to Visit [...] No results found for: METF, NMETFX, TFNMFX, [id number], [id number], TOTEPI CARDIAC PROCEDURES/IMAGING Last angiogram 10/19/2011: 3 Vessel coronary artery disease to LAD, OM ,right PDA. Mildly elevated LVEDP., CABG recommended. CORONARY ANGIOGRAPHY: Left Main: distal 30% to 40% plaqu e. LAD: heavily calcified to proximal and mid segment. First diagonal branch small vessel, 2nd diagonal branch was a large-caliber vessel with an ostial 85% stenosis. Zla-to-jqtscx LA D right at the bifurcation of [...] Peak Systolic Velocities (cm/sec)CCA-PROX: 79 CCA-DIST :68 ICA-VA OX : 72 ICA-MID : 71 ICA-DIST [...] clot, no ASD, no VSD ECHO: 10/19/2011 ([facility]): Sinus rhythm. Suboptimal study. EF [...] II. 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 rate 65 bpm, VA 258 ms, QRS 100 ms, QTC 451 ms, tracing personally reviewed by me EK11/16/2018: Sinus rhythm with first-degree AV block, PACs. H QRS, old inferior UT. Ra te 64 bpm, VA 262 ms, QRS 100 ms, QTC 460 [...] x 4 2. Coronary artery disease involving [place] coronary artery of [place] heart without angina pectoris 3. Moderate aortic [...] past surgical history. Problem list. [facility] Esc[facility] Cardiology 11/16/2018in this encounter Plan of [...] the | | | | PDT | [place] coronary | results section. | | | | | artery of [place] | | | | | | heart [...] + + + + | Calculated P [place] | 43 | degrees | [facility] EKG | + + + + + | Calculated R [place] | -45 | degrees | [facility] EKG | + + + + + | Calculated T [place] | 94 | degrees | [facility] EKG | + + + + + | Diagnosis | Please refer to | | [facility] EKG | | | Providers office visit | | | | | note for Providers | | | | | Interpretation.Confirmed | | | | | by [facility] [place] Read Only, | | | | | LORENA Gilmore ([id number]), | | | | | newspaper managing editor Julio Smith | | | | | (253) on 11/16/2018 | | | | | 3:02:55 PM | | | + + + + + + + + + + | Performing | Address | City/State/Zipcode | Phone Number | | Organization | | | | + + + + + | [facility] | [address] | [place] [address] | | + + + + + in this encounter Visit Diagnoses + + | Diagnosis | + + | Coronary artery disease involving [place] coronary artery of [place] heart without | | angina pectoris - [...]
--- OUTSIDE RECORDS SUMMARY | ~2019-01-30 | XMS | Encounter Summary ---
Demographics + + + | Address | [address] | | | [place] [address] | + + + | Home Phone | | + + + | Preferred Language | Unknown | + + + | Marital Status | | + + + | Anabaptism Affiliation | Unknown | + + + [...] [place] | | | | | [address] | | + + + + + Care Team Providers + +------+ + | Care Weighter Name | Role | Phone | + [...] + | 01/05/ | Documentati | [facility] | Nicolas, | Results (01/02/19) | | 2019 | on | NEPHROLOGY [place] | Herminio Abreu | | | | | [address] | Substation Operator Helper | | | | | [address] [facility] | | | | | | [address] | | | | | | [phone] | | | +--------+ + + + [...] | Visit | | [address] [facility] | | | | | | [address] [place], [place] | | | | | | [address] | | | | | | | [...]
--- OUTSIDE RECORDS SUMMARY | ~2019-01-30 | XMS | Encounter Summary ---
Demographics + + + | Address | [address] | | | [place] [address] | + + + | Home Phone | | + + + | Preferred Language | Unknown | + + + | Marital Status | | + + + | Methodist Affiliation | Unknown | + + + | Race | Unknown | + + + | Ethnic Group | Unknown | + + + Author + + + | Author | [facility] | | | and [place] | + + + | Organization | [facility] | | | and [...] [place] | | | | | [address] | | + + + + + Care Team Providers + +------+ + | Care Footwear Sales Associate Name | Role | Phone | + +------+ + | Misha Foy PCP | | | MD | | | + +------+ + Encounter Details +--------+---------+ + + + | Date | Type | Department | Care Team | Description | +--------+---------+ + + + | 01/05/ | Office | [facility] | Rosas Martinez, | CKD (chronic kidney | | 2019 | Visit | NEPHROLOGY [place] | LOLA Anyi ABDI | disease), stage III | | | | [address] [facility] | [address] | (Primary Dx) | | | | [address] | [place] [address] | | | | | [place] | [phone] | | | | | [address] | | | | | | [phone] | | | +--------+---------+ + + + [...] kidney. He reports he was hospitalized in [place] in mid October 2015 for rectal bleeding, had a col onoscopy, polyp removed and dx with diverticulitis. He is followed by GI in [place]. He tells me he feels dizzy. he [...] labs include: RFP, Magnesium, CBC, Urine total oohsgvl-ys-bluitbawcg ratio. BP Charting: he will bring me [...] questions or concerns. Truly yours, Rosas DAVILA [facility] Nephrology 14:2 8 PDTdocumented in this encounter Plan of Treatment +--------+---------+ + + + | Date | Type | Specialty | Care Team | Description | +--------+---------+ + + + | 05/07/ | Office | Nephrology | Elijah Bermeo MD | | | 2020 | Visit | | [address] [facility] | | | | | | [address] [place], [place] | | | | | | [address] | | | | | | | [...]
--- OUTSIDE RECORDS SUMMARY | ~2019-01-30 | XMS | Encounter Summary ---
Demographics + + + | Address | [address] | | | [place] [address] | + + + | Home Phone | | + + + | Preferred Language | Unknown | + + + | Marital Status | | + + + | Congregational Affiliation | Unknown | + + + | Race | Unknown | + + + | Ethnic Group | Unknown | + + + Author + + + | Author | [employer] [facility] (Historical as of | | | 12-16-18) | + + + | Organization | [facility] (Historical as of | | | 12-16-18) | + + + | Address | Unknown | + + + | Phone | Unavailable | + + + Support + + + + + | Name | Relationship | Address | Phone | + + + + + | Cristina Ashton | ECON | [address] [facility] | | | | | [place] | | | | | [address] | | + + + + + Care Team Providers + +------+ + | Care Resource Teacher Name | Role | Phone | + +------+ + | Misha Foy MD | PCP | | + +------+ + Encounter Details +--------+ + + + + | Date | Type | Department | Care Team | Description | +--------+ + + + + | 11/15/ | Telephone | [facility] [place] | Angeline Garduno MA | | | 2019 | | Cardiology [place] | | | | | | [address] [facility] [address] | | | | | | [facility] [address] | | | | | | [place] [address] | | | | | | [phone] | | | +--------+ + + + [...] + + + as of this encounter Plan of Treatment Not on fileas of this encounter Visit Diagnoses Not on filein this encounter"
--- OUTSIDE RECORDS SUMMARY | ~2019-01-30 | XMS | Clinical Summary ---
Demographics + + + | Address | [address] | | | [place] [address] | + + + | Home Phone | | + + + | Preferred Language | Unknown | + + + | Marital Status | | + + + | Islam Affiliation | Unknown | + + + | Race | Unknown | + + + | Ethnic Group | Unknown | + + + Author + + + | Author | [facility] (Historical as of | | | 12-16-18) | + + + | Organization | [facility] (Historical as of | | | 12-16-18) | + + + | Address | Unknown | + + + | Phone | Unavailable | + + + Support + + + + + | Name | Relationship | Address | Phone | + + + + + | Cristina Ashton | ECON | [address] [facility] [address] | | | | | [place] | | | | | [address] | | + + + + + Care Team Providers + +------+ + | Care Industrial Electrician Journeyman Name | Role | Phone | + [...] + + | 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 | | | | | artery of eek | | | | | | heart [...] + + + + | Calculated P Wall | 43 | degrees | [facility] E[facility] | + + + + + | Calculated R Wall | -45 | degrees | [facility] | + + + + + | Calculated T Wall | 94 | degrees | [facility] | + + + + + | Diagnosis | Please refer to | | [facility] EKG | | | Providers office visit | | | | | note for Providers | | | | | Interpretation.Confirmed | | | | | by [facility] [place] Read Only, | | | | | [facility] [place] ([id number]), | | | | | newspaper copy editor Julio Smith | | | | | ([id number]) on 11/16/2018 | | | | | 3:02:55 PM | | | + + + + + + + + + + | Performing | Address | City/State/Zipcode | Phone Number | | Organization | | | | + + + + + | [facility] EKG | [address] | [place] [address] | | + + + + + [...] +------+-------+ + | MEDICARE | MEDICA | [id number] | | | [address] | | | RE | | | | [place] [phone] | | | IP-OP | | | | | + +--------+ +------+-------+ + | - WPS - | TRICAR | [id number] | | | [address] [address] | | [place] | [place] | | | | [place] | | | LIFE | | | | [phone] | + +--------+ +------+-------+ + + +--------+ +--------+ + + | Guarantor Name | Accoun | Relation to | Date | Phone | Billing Address | | | t Type | Patient | of | | | | | | | | | | + +--------+ +--------+ + + | ELISSA ASHTON | Person | Self | [birth year] Home: | [address] | | | al/Fam | | [phone] | [phone] | [place] | | | deuce | | | [phone] | + +--------+ +--------+ + +
--- OUTSIDE RECORDS SUMMARY | ~2019-01-30 | XMS | Encounter Summary ---
Demographics + + + | Address | [address] | | | [place] [address] | + + + | Home Phone | | + + + | Preferred Language | Unknown | + + + | Marital Status | | + + + | Nondenominational Affiliation | Unknown | + + + | Race | Unknown | + + + | Ethnic Group | Unknown | + + + Author + + + | Author | [facility] | | | and [place] | + + + | Organization | [facility]erged [facility] | | | [...] [place] | | | | | [address] | | + + + + + Care Team Providers + +------+ + | Care Hydraulic Spinner Name | Role | Phone | + [...] + + | 12/21/ | Office | [facility] | Karyn Wren | Coronary artery | | 2019 | Visit | [facility]IOLOGY [facility] | [address] | disease involving | | | | [address] | [place] [address] | wrangell coronary | | | | [address] | [place] [address] | artery of wrangell | | | | [place] | [phone] | heart without angina | | | | [address] | | pectoris (Primary | | | | [phone] | | Dx); S/P CABG x 4; [...] is followed by Dr. Bermeo, and nephrology MOTORCYCLE DESIGNEREd Martinez, and darrell miramontes seen by them [...] visual disturbance or double vision. Respiratory/Sleep:: reports snf chronic cough at night. Denies shortness of [...] walking daily for one lap around fo [employer] and tolerates. Lives in [place] . , daughter Joselin. Outpatient Medications Prior [...] large-caliber vessel with an ostial 85% stenosis. [id number] LA D right at the bifurcation of [...] clot, no ASD, no VSD ECHO: 10/19/2011 ([facility]): Sinus rhythm. Suboptimal study. EF 45-50%. [...] voltage QRS karoline ds II. Old inferior OK. rate 65 bpm, MN 258 ms, QRS 100 ms, QTC 451 ms, tracing personally reviewed by me EK11/16/2018: Sinus rhythm with first-degree AV block, PAC's. H QRS, old inferior OK. R ate 64 bpm, MN 262 ms, QRS 100 ms, QTC 460 [...] back . 1. 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 S/P CABG [...] past surgical history. Problem list. Moe DAVILA [facility] Cardiology 12/22/2018 documente d in this encounter Plan of Treatment +--------+---------+ + + + | Date | Type | Specialty | Care Team | Description | +--------+---------+ + + + | 05/07/ | Office | Nephrology | Elijah Bermeo MD | | | 2019 | Visit | | [address] [facility] | | | | | | [address] [facility] | | | | | | [address] | | | | | | | | +--------+---------+ + + + documented as of this encounter Visit Diagnoses + + | Diagnosis | + + | Coronary artery disease involving wrangell coronary artery of wrangell heart without | | angina pectoris - [...]
--- OUTSIDE RECORDS SUMMARY | ~2019-01-30 | XMS | Encounter Summary ---
Demographics + + + | Address | [address] | | | [place] [address] | + + + | Home Phone | | + + + | Preferred Language | Unknown | + + + | Marital Status | | + + + | Sabianism Affiliation | Unknown | + + + | Race | Unknown | + + + | Ethnic Group | Unknown | + + + Author + + + | Author | [employer] [facility] (Historical as of | | | 12-16-18) | + + + | Organization | [facility] (Historical as of | | | 12-16-18) | + + + | Address | Unknown | + + + | Phone | Unavailable | + + + Support + + + + + | Name | Relationship | Address | Phone | + + + + + | Cristina Ashton | ECON | [address] | | | | | [place] | | | | | [address] | | + + + + + Care Team Providers + +------+ + | Care Performance Reporter Name | Role | Phone | + +------+ + | Misha Foy MD | PCP | | + +------+ + Encounter Details +--------+ + + + + | Date | Type | Department | Care Team | Description | +--------+ + + + + | 11/15/ | Telephone | [facility] | Angeline Garduno MA | | | 2019 | | Cardiology [facility] | | | | | | [address] [facility] [address] | | | | | | [facility] [address] | | | | | | [place] [address] | | | | | | [phone] | | | +--------+ + + + [...]
[~2019-01-30 13:00] MED LIST: ASPIR-LOW81 MG PO; ASPIRIN PO; CHOLESTEROL MED PO; DEMADEX20 MG PO; FUROSEMIDE PO; HYDROCHLOROTH12.5 MG PO; IRON 100-VITAM1 EACH PO; IRON PO; LEVOFLOXACIN500 MG PO; LEVOTHROID50 MCG PO; LIPITOR40 MG PO; LISINOPRIL10 MG PO; MAPAP500 M1 PO; METOPROLOL SUCC25 MG PO; METOPROLOL TART25 MG PO; MIRALAX17 GM PO; NEXIUM20 MG PO; NORCO 5-325 TA1 EACH PO; PRILOSEC OTC20 MG PO; STOOL SOFTENER100 MG PO; THYROID MEDICINE PO; ULTRA-LIGHT RO1 EACH MISC; VITAMIN D5000 UNIT PO; VITAMIN E PO
--- NOTE | 2019-01-30 20:40 | EKG ---
[facility] [address] [place] [address] Signed Sinus rhythm with 1st degree AV block with premature atrial complexes Left axis deviation Minimal voltage criteria for LVH, may be normal variant Nonspecific ST and T wave abnormality Abnormal ECG When compared with ECG of 16-AUG-2016 05:59, premature atrial complexes are now present Inverted T waves have replaced nonspecific T wave abnormality in Lateral leads Confirmed by PERRY MATHIS MD ([id number]) on 01/30/2019 8:40:02 PM Electronically Signed By: PERRY MATHIS MD 01/30/192039 PATIENT NAME: ELISSA GEORGE Electrocardiogram DATE OF : [birth year] PHYSICIAN: PERRY MATHIS MD REPORT #: [id number] REPORT IS CONFIDENTIAL AND NOT TO BE RELEASED WITHOUT AUTHORIZATION
== END 2019-01-30 15:55 | disposition home or self-care (01) ==
LOC: ED 13:00
DX: R53.1 Weakness (principal); I10 Essential (primary) hypertension; I25.10 Atherosclerotic heart disease of native coronary artery without angina pectoris; K21.9 Gastro-esophageal reflux disease without esophagitis; E03.9 Hypothyroidism, unspecified; Z88.5 Allergy status to narcotic agent; Z88.8 Allergy status to other drugs, medicaments and biological substances; Z88.1 Allergy status to other antibiotic agents; Z79.899 Other long term (current) drug therapy
CPT/HCPCS: 96360; 96361; 99285-25; J7120

== ENCOUNTER 2020-03-20 14:00 | Emergency (ER) | payer MEDICARE, OTHER ==
[~2020-03-20] VITALS: Ht 193 cm; Wt 73.5 kg
[2020-03-21] MEDS ORDERED: SPIRONOLACTONE50 MG PO (14:36)
[2020-03-21] MEDS ORDERED: FUROSEMIDE40 MG PO (14:36)
== END 2020-03-20 19:10 | disposition home or self-care (01) ==
LOC: ED 14:00
DX: S02.2XXA Fracture of nasal bones, initial encounter for closed fracture (principal); S12.300A Unspecified displaced fracture of fourth cervical vertebra, initial encounter for closed fracture; S12.400A Unspecified displaced fracture of fifth cervical vertebra, initial encounter for closed fracture; W18.30XA Fall on same level, unspecified, initial encounter; K21.9 Gastro-esophageal reflux disease without esophagitis; I10 Essential (primary) hypertension; E03.9 Hypothyroidism, unspecified; Z88.5 Allergy status to narcotic agent; Z88.8 Allergy status to other drugs, medicaments and biological substances; Z88.1 Allergy status to other antibiotic agents; Z79.899 Other long term (current) drug therapy
CPT/HCPCS: 70450; 70486; 72125; 90471; 90715; 96374; 99283-25; J3010

== ENCOUNTER 2020-03-21 14:20 | Inpatient (IN) | payer MEDICARE, OTHER ==
[~2020-03-21] VITALS: Ht 193 cm; Wt 68.8 kg
--- OUTSIDE RECORDS SUMMARY | 2020-03-21 14:24 | XMS ---
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 Karyna has no Care Guidelines for this patient. Narc[facility] VISIT COUNT (12 MO.) [facility] TOTAL 2 NOTE: Visits indicate total known visits. ED/C VISIT TRACKING (12 MO.) [facility] COMPLAINT: - GENERALIZED WEAKNESS 03/20/2020 14:00 [facility] [place] TYPE: Emergency COMPLAINT: - FALL INPATIENT VISIT TRACKING (12 MO.) No inpatient visits to display in this time frame [email or web address]
[2020-03-21] MEDS ORDERED: FUROSEMIDE40 MG PO (14:36)
[2020-03-21] MEDS ORDERED: SPIRONOLACTONE50 MG PO (14:36)
--- NOTE | 2020-03-21 17:56 | EKG ---
[facility] [address] [facility] [place] [address] Signed Sinus bradycardia with 1st degree AV block with occasional premature ventricular complexes Left axis deviation Left ventricular hypertrophy with repolarization abnormality Abnormal ECG When compared with ECG of 30-JAN-2019 13:47, premature ventricular complexes are now present premature atrial complexes are no longer present T wave inversion more evident in Lateral leads Confirmed by DOMINGO MCKINNON MD ([id number]) on 03/21/2020 5:56:00 PM Electronically Signed By: DOMINGO MCKINNON MD 03/21/20 1756 PATIENT NAME: ELISSA GEORGE Electrocardiogram DATE OF : [birth year] PHYSICIAN: DOMINGO MCKINNON MD REPORT #: [id number] REPORT IS CONFIDENTIAL AND NOT TO BE RELEASED WITHOUT AUTHORIZATION
--- NOTE | 2020-03-21 21:45 | NUR ---
PT ARIVING TO THE FLOOR, IN RM TO 4PA XFER PT ONTO MEDSURG BED, PANTS OFF, ATTENDS PUT ON, NEW CHUX ON BED, VITALS TAKEN, SPO2 READING DONE ON LEFT BIG TOE, WATER PROVIDED, NO FURTHER NEEDS AT THIS TIME, IS IN THE RM AT THIS TIME
--- NOTE | 2020-03-21 21:50 | NUR ---
2144 PT ARRIVED TO ROOM 110 VIA STRETCHER FROM ED ACOMPANIED BY . WEARING A CNECK COLLAR DUE TO FALL W NECK FX AND NOSE FX 03/20 AT HOME. SCABBING OVER ABRASIONS FRONTAL AND R SIDE OF FACE, REDNESS AND MILD ABRASION LEFT SIDE OF FACE , BRUISING AND ABRASIONS OF L HAND AND FINGERS., LIGHT BUTTOCKS AREA REDNESS, ABRASIONS OF L KNEE AND MID CALF. PRESSURE DRESSING R BIG TOE THAT WAS APPLIED BY HOME HEALTH, VERY DRY SCALY SKIN AT FEET. 2 IV SITES R AND LEFT ARM , ON ROOM AIR, HX OF DEMENTIA, SLURRED SPEECH, ANXIOUS, CALMED DOWN BY , HIGH FALL PRECAUTIONS AND ASPIRATION PRECAUTIONS IN PLACE, BED ALARM ON
--- NOTE | 2020-03-21 23:44 | NUR ---
HOB ELEVATED, NECK BRACE IN PLACE, MOIST NONPRODUCTIVE COUGH NOTED, ASPIRATION PRECAUTIONS IN PLACE, FLUIDS TICKENED HE WAS GIVEN SIPS OF FLUID AND STARTED COUGHING,
--- NOTE | 2020-03-22 00:17 | NUR ---
CONFUSED, REPOSITIONED IN BED, NECK BRACE IN PLACE, BED ALARM, GARBLED SPEECH PROCEDURE EXPLAINED, WAS PULLING ON IV, KOBDAVID APPLIED. IVF INFUSING.
--- NOTE | 2020-03-22 01:40 | NUR ---
ASSISTED TOOL AND DIE MAKER LEVEL FIVE MAU AND RN AI TO HELP PATIENT GET UP TO USE THE BEDSIDE COMMODE. NO BOWEL MOVEMENT. PATIENT IS BACK IN BED. BED ALARM ON FOR SAFETY. V/S AND I&O TAKEN AND CHARTED.
--- NOTE | 2020-03-22 03:48 | NUR ---
RESTING, HOB ELEVATED, CALM, NECK BRACE IN PLACE, IVF INFUSING, CALL LIGHT AND BED ALARM ON
--- NOTE | 2020-03-22 05:19 | NUR ---
PATIENT VOIDED 100CC ON THE URINAL.
--- NOTE | 2020-03-22 06:18 | NUR ---
PT ADMITTED AFTER A FALL AT HOME WITH A NECK FX AND SUBSEQUENT WEAKNESS AND ELDERLY UNABLE TO TAKE CARE OF PT. PT HAS A BASELINE DEMENTIA, SLURRED SPEECH,ASPIRATION AND DELAYED SWALLOWING PROBLEMS. ON ROOM AIR, HAS MULTIPLE FACIALABRASIONA, FX NOSE, WEARING C NECK COLLAR, HAS MOIST NON PRODUCTIVE COUGH, SHALLOW BREATHING AND DELAYED SWALLOWING. TOOK SIPS OF THICKENED, CLEAR FLUIDS AND STARTED COUGHING INMEDIATELY, ASPIRATION PRECAUTIONS IN PLACE, CHRONIC SWALLOWING PROBLEMS, NON PRODUCTIVE COUGH, YAUNKER SUCTION AT BEDSIDE. SCABBED AREA OVER R JUAREZ AND DRESSING APPLIED BY HENRY SHAW. ON ADMIT HIS HANDS WERE DUSKY COLORED, WARM AND PINK WITH INMEDIATE CAPILLARY REFILL AT THIS TIME, LOW URINARY OUTPUR, ATTNEDS IN PLACE, BED ALARM ON, HX OF MEMRY PROBLEMS, EASILY REORINETED, ORIENTED TO SELF ONLY, BED ALARM ON HE TRIES TO GET OUT OF BED, VERY WEAK GAIT NOTED WHEN PT UP TO BS WITH 3PEOPLE, NO BM. TOLERATED FAIT. CALL LIGHT AT BEDSIDE
--- NOTE | 2020-03-22 06:38 | NUR ---
THYROID MED GIVEN CRUSHED AND IN APPLESAUCE, TOLERATED WEL,, ABLE TO SWALLOW SMALL BITES, NO COUGH AT THIS TIME, HOB ELEVATED AT 45o
--- NOTE | 2020-03-22 07:10 | NUR ---
BEDSIDE HANDOFF REPORT RECEIVED FROM BOOKKEEPER RECEPTIONIST RN. PT RESTING IN BED.
--- NOTE | 2020-03-22 09:30 | NUR ---
PT RESTING IN BED. PT ORIENTED TO SELF ONLY. PT DENIES PAIN. PT ON ROOM AIR, LUNGS SOUNDS CLEAR. PT WITH CERVICAL COLLAR IN PLACE. ATTEMPTED 2 BITES OF APPLE SAUCE WITH MEDICATIONS, NO S/S OF ASPIRATION INITIALLY BUT THEN BEGAN COUGHING AFTER ABOUT 2 MINUTES, SUCTION PROVIVED. BOWEL TONES ACTIVE, DENIES NAUSEA. CMS INTACT, WITHOUT EDEMA. IV FLUIDS INFUSING AT 100 ML/HR. BED ALARM IIN PLACE. PT DENIES OTHER NEEDS AT THIS TIME.
--- NOTE | 2020-03-22 10:48 | NUR ---
PT REQUESTIGN SUPPOSITORY, HAS NOT HAD BM IN SEVERAL DAYS AND IS HAVING DIFFICULT PASSING STOOL. NIO ORDER PLACED FOR BISACODYL SUPPOSITORY, GIVEN, SOFT STOOL PRESENT IN RECTUM. NURSE AIDE AND P.T. IN ROOM WITH PT.
[2020-03-22] MEDS ORDERED: FLUDROCORTISON0.1 MG PO (11:32)
[2020-03-22] MEDS ORDERED: LEVOTHYROXINE75 MCG PO (11:32)
--- NOTE | 2020-03-22 14:34 | NUR ---
PT EATING CLEAR LIQUID TRAY, PT ABLE TO EAT MOST OF TRAY WITH SUPERVISION, ABLE TO CLEAR THROAT AND USES YAUNKER. PT PROVIDED WITH THICKENED COFFEE, PLAN TO WALK AFTER PT DRINKS COFFEE.
--- NOTE | 2020-03-22 14:54 | NUR ---
PHYSICAL THEREPY NEEDED SOME HELP THIS MORNING TO WALK PATIENT. PATIENT HAD A BIG BOWEL MOVEMENT. IS IN THE ROOM.
--- NOTE | 2020-03-22 15:39 | NUR ---
PT ASSISTED TO WALK IN CANALES 2PA WITH FWW. ABLE TO WLAK APPROXIMATELY 50 FEET. PT COMPLAINT OF BACK AND NECK PAIN AFTER RETURNING TO BED, REQUESTING PAIN MEDICATION, NO PAIN MEDICATION ORDERED, CALLED AND WILL PLACE NEW ORDER.
--- NOTE | 2020-03-22 18:29 | NUR ---
PT HEAD OF BED LOWERED AFTER EATING. PT STATES PAIN IS NOT MUCH IMPROVED AFTER TYLENOL. CALL LIGHT WITHIN REACH. PT DENIES OTHER NEEDS AT THIS TIME.
--- NOTE | 2020-03-22 18:32 | NUR ---
PT ON ROOM AIR, LUNG SOUNDS CLEAR. PT WITH INTERMITTENT CONFUSION. PT WITH C-COLLAR, RECENT FALL. WORKED WITH P.Xcedex., ABLE TO WALK WITH 2PA AND FWW. PT VOIDING, INCONTINENT AT TIME, URINE SAMPLE NEEDED. PT WITH DYSPHAGIA CHRONIC, CLEAR LIQUID DIET WITH THICKENED LIQUIDS. GIVEN TYLENOL X1 FOR GENERALIZED PAIN.
--- NOTE | 2020-03-22 20:49 | NUR ---
HOB elevated 30o, continous to have gargling sounds, Yaunker ar side, mouth suctioned. on clear, thickened liquids. Continoues to have scabbing and redness of face, R leg, hands, ss R face and L hand. garbled speech, turned and repositioned. legs elevated. Coop with assessment. IVF infusing, L field start IV in place.
--- NOTE | 2020-03-22 21:38 | NUR ---
MACHINIST HELPER ROUNDING NOTE. PT RESTING IN BED WITH EYES CLOSED. DOES NOT WAKE WHILE PLASTIC CNC MACHINE OPERATOR IN ROOM. APPEARS TO BE SLEEPING. CALL LIGHT IN REACH. ROOM IN VIEW OF RN STATION. BED ALARM ACTIVE. WHITE BOARD UPDATED.
--- NOTE | 2020-03-22 22:42 | NUR ---
RESTING, HOB ELEVATED, NECK BRACE IN PLACE, IVF INFUSING, NO S/SX DISTRESS, SCABBED AREAS OVER BODY HEALING, BED ALARM ON, FALL/ASPIRATION PRECAUTIONS IN PLACE
--- NOTE | 2020-03-22 23:58 | NUR ---
RESTING, EYES CLOSED, NECK BRACE IN PLACE. REPOSITIONED, NO C/O OR S/SX PAIN. IVF INFUSING.
--- NOTE | 2020-03-23 01:21 | NUR ---
REPOSITIONED IN BED, VOIDING DARK YELLOW URINE, SAMPLE ROMI TO LAB. PT HAS SMALL AMOUNT OF RED DRAINAGE FROM [place], PENILE CARE DONE. IVF INFUSING, USES YAUNKER, OCASSIONAL MOIST NON PRODUCTIVE COUGH PRESENT. NECK BRACE IN PLACE. ASPIRATION AND FALL PRECAUTIONS IN PLACE, SLURRED/GARBLED SPEECH STILL PRESENT AT BASELINE. USES CALL LIGHT
--- NOTE | 2020-03-23 01:32 | NUR ---
PATIENT CALLED. ASSISTED TO USE THE URINAL. URINE SAMPLE SENT TO LAB. GENTLY WIPED EYES AND FACE. CALL LIGHT IN REACH. BED ALARM ON FOR SAFETY.
--- NOTE | 2020-03-23 04:20 | NUR ---
Repositioned, goes back to sleep, on room air, ivf infusing, neck brace in place, bed alarm on
--- NOTE | 2020-03-23 04:54 | NUR ---
Pt on room air, neck collar in place, continues to have moist non productive cough, alow swallowing, uses yaunker, hob elevated to 30o at rest and higher when up for measl, aspiration precautions in place. meds to becrushed and given with applesauce, clear thickened liquids. needs help with repositioning and eating. face and L hand intact, multiple abrasions and scabbed over areas on face, nose, L and R hands, and R romero area dressing R big toe. Scant amount of red drainage from penile foreskin present, uses urinal, voiding small amounts of dark yellow urine. UA sample sent to lab Bed alarm on. IVF infusing w/o problems
--- NOTE | 2020-03-23 07:00 | NUR ---
BEDSIDE HANDOFF REPORT RECEIVED FROM PIANO STRINGER RN. PT SLEEPING, LEFT UNDISTURBED.
--- NOTE | 2020-03-23 08:45 | NUR ---
PT RESTING IN BED. PT ON ROOM AIR, LUNG SOUNDS WITH COARSE CRACKLES IN UPPER LOBES, COARSE IN LOWER LOBES, FREQUENT MOIST COUGH, YAUNKER AT BEDSIDE AND PT USES APPROPRIATELY. PT WITH C-COLLAR IN PLACE, WOUNDS ON FACE FROM RECENT FALL. PT DENIES NAUSEA, BOWEL TONES ACTIVE. IV FLUIDS INFUSING D5LR AT 100ML/HR. CMS INTACT, WITHOUT EDEMA. PT WITH GARBLED SPEECH, DIFFICULT TO UNDERSTAND. BREAKFAST ORDERED, PLAN TO SIT PT IN CHAIR FOR BREAKFAST. PT DENIES OTHER NEEDS AT THIS TIME.
--- NOTE | 2020-03-23 12:20 | NUR ---
PT C COLLAR REMOVED FOR LUNCH. SPORTS MEDICINE MASSEUR AT BEDSIDE ASSSISTING WITH LUNCH.
--- NOTE | 2020-03-23 12:20 | NUR ---
PT PROVIDED WITH WARM BLANKETS. NEW BAG OF IV HANGING. PT DENIES OTHER NEEDS AT THIS TIME.
--- NOTE | 2020-03-23 13:45 | NUR ---
PT COMPLETED WITH LUNCH. C-COLLAR REPLACED. NO ACUTE CHANGES. PT REQUESTING TO GO TO BED, PT AGREEABLE TO SIT UP FOR 15 MORE MINUTES.
--- NOTE | 2020-03-23 14:10 | NUR ---
PT ASSISTED TO BED, 1PA WITH FWW. WARM BLANKETS PROVIDED. PT DENIES OTHER NEEDS AT THIS TIME.
--- NOTE | 2020-03-23 16:12 | NUR ---
THIS MORNING VERONICA THE PHYSICAL THERAPY HELPED ME TRANSFER PATIENT FROM HIS BED TO HIS CHAIR. PATIENT DRANK HIS BREAKFAST AND LUNCH UP IN HIS CHAIR. PATIENT IS IN BED NOW.
--- NOTE | 2020-03-23 18:12 | NUR ---
PT ON ROOM AIR, LUNG SOUNDS COARSE, FREQUENT MOIST COUGH. PT WITH C-COLLAR IN PLACE FROM RECENT FALL. PT NOW SALINE LCOKED. DIET ADVANCED TO PUREED WITH THICK LIQUIDS, TOLERATED WELL, USING YAUNKER. PT 1PA WITH FWW. WALKED IN CANALES WITH P.T., ABLE TO WALK FURTHER TODAY. PT VOIDING MARGINAL QS URINE.
--- NOTE | 2020-03-23 21:46 | NUR ---
HOB elevated 30o, on room air, continues to have moist non productive cough as he is unable to expectorate it. uses Yaunker himself, mouth and HS care done. Continoues to have garbled, unintelligible speech at times. Coop with assessment, Lungs dim at bases. tolerating sips thickened clear liquids. aspiration precautions in place. Opsite over nose and ss over R cheeck area and L hand intact. scabbed areas over various part of body healing.. voiding small amount of dark yellow urine, MD aware. call light at bedside, uses it correctly.
--- NOTE | 2020-03-24 05:10 | NUR ---
Pt has slept well. On room air, HOB elevated to 30o, neck collar in place. multiple scabbed/.excoriated areas over dace, arms, legs healing, uses yaunker, slow to swallow, swallowing aspiration precautions in place, on clear thickened liquid, uses urinal and voiding small amounts of dark yellow urine. Speech garbled/slurred and clear at others, follows instructions well, turned. cooperative. sl patent, no bm thi shift
--- NOTE | 2020-03-24 07:49 | NUR ---
SHIFT REPORT FROM NURSE CLOUD. PT SLEEPING IN BED IN UPRIGHT POSITION. BREATHING EVEN AND UNLABORED. NO APPARENT SIGNS OF DISTRESS. PT IN VIEW OF NURSES STATION
--- NOTE | 2020-03-24 09:00 | NUR ---
PATIENT SITTING AT SIDE OF BED. PHYSICAL THERAPY IN ROOM.
--- NOTE | 2020-03-24 09:59 | NUR ---
PT ASSISTED BACK TO LAYING POSITION AFTER BREAKFAST. PT HAD REMOVED NECK BRACE DURING EATING. PT WAS APPROPRIATE WITH HOLDING NECK STRAIGHT AND ALIGNED DURING EATING. MINIMAL DYSPHAGIA NOTED. PT USED SUCTIOIN INDEPENDENLTY.
--- NOTE | 2020-03-24 11:05 | NUR ---
LUNCH ARRIVED. PT FEELS HE HAS JUST FINISHED BREAKFAST AND ISNT HUNGRY YET. PT ALLOWED TO REST LONGER UNTIL HE FEELS HUNGRY.
--- NOTE | 2020-03-24 12:30 | NUR ---
PT'S HERE FOR A VISIT. PT UP TO BEDSIDE EATING LUNCH. PT REPORTS HE WOULD LIKE TO WALK WITH PT AGAIN BECAUSE IT FELT GOOD YESTERDAY. ATTEMPTED TO INQUIRE WITH PT WHAT TIME PT'S THERAPY WOULD BE, BUT PT IS NOT IN THERAPY ROOM.
--- NOTE | 2020-03-24 13:41 | NUR ---
SPOKE WITH PATIENT AND IN ROOM. PATIENT IS ABLE TO GET UPRIGHT TO SIDE OF BED FOR LUNCH WITH ASSIST OF SUPERVISOR EXTRUDING DEPARTMENT. PATIENT IS ABLE TO FEED SELF, ALTHOUGH HE DROPS ALOT OF FOOD ON SELF. I HAD MET WITH THEM IN ED ON TUESDAY QUITE EXTENSIVELY. WE DISCUSSED HOW PROGRESS IS GOING. THEY FEEL IS HE IS DOING WELL WITH THERAPY. PATIENT VERY PROUD HE WALKED WITH WALKER AND PT. GIORGIO IS CONCERNED HE WILL FALL AT HOME AGAIN STATING "IT HAPPENED SO QUICK, HIS LEGS JUST GAVE OUT". WE DISCUSSED OPTIONS AGAIN. SNF FOR CONTINUED THERAPY FOR AWHILE, MOVING TO ASSISTED LIVING, HIRE IN HELP. SHE DOES NOT SEEM TO LIKE ANY OPTIONS. SHE IS VERY TEARFUL ON WHAT TO DO. SHE FEELS SHE WANTS HIM AT HOME BUT THE FEAR OF HIS FALLING IS CONCERNING. SHE FEELS SHE CANNOT MAKE A DECISION TODAY. SHE DOES LIKE THEIR HOME HEALTH TEAM, SHE WISHES THEY WERE THERE FOR MORE HOURS. WE DISCUSSED POSSIBLE ASSISTED LIVING BUT THEY LIKE THEIR HOME AND FEEL MOST COMFORTABLE THERE. SHE IS NOT SURE HOW HIRING HELP WOULD WORK SHE ONLY NEEDS IT IF HE FELL. AGREED TO CONTINUE THERAPY AND SEE HOW HE DOES. QUESTIONS ANSWERED.
--- NOTE | 2020-03-24 14:10 | NUR ---
ASSISTED PT IN LAYING BACK DOWN IN BED. PT HAD EATEN QUITE WELL FOR LUNCH. PT'S STILL IN ROOM AT BEDSIDE. PT REMOVES NECK COLLAR TO MAKE SWALLOWING EASIER. PT MOVES SLOWLY AND APPROPRIATELY WHILE NECK COLLAR IS OFF.
--- NOTE | 2020-03-24 15:54 | NUR ---
CHECKED IN ON PT. PT SLEEPING IN BED, PT'S AT BEDSIDE READING. NO SIGNS OF DISTRESS.
--- NOTE | 2020-03-24 18:58 | NUR ---
PT UP IN BED FINISHING DINNER. PT ATTEMPTED PUREED FOODS, APPETITE POOR. PT DRANK ONE ENSURE. PT SELF SUCTIONS WHEN NEEDED. PT IN VIEW OF NURSES STATION
--- NOTE | 2020-03-24 19:42 | NUR ---
PATIENT IS IN BED WITH HEAD OF BED ELEVATED TO 32 DEGREES, PATIENT IN NECJ BRACE AND HAS NO NEEDS AT THIS TIME DURING REPORT AND CALL LIGHT IS IN REACH.
--- NOTE | 2020-03-24 21:22 | NUR ---
PATIENT RESTING IN BED, HAS NO NEEDS AT THIS TIME VS DTABLE CALL LIGHT AND SUCTION IN REACH. NEW ICE WATER GIVEN, PATIENT VOIDED SHARITA URINAL IN BED AND TURNED TO HIS RIGHT SIDE. BARRIER CREAM APPLIED TO BUTTOCKS.
--- NOTE | 2020-03-24 23:20 | NUR ---
PATIENT GIVEN TYLENOL FOR GENERAL DISCOMFORT, PATIENT DRANK SOME THICKENED WATER WITHOUT DIFFICULTY AND GOY HIS TABLETS DOWN. PATIENT VERY TIRED AND GOING BACK TO SLEEP. CALL LIGHT IN REACH AND PATIENT CAN BE SEEN FROM NURSES DESK.
--- NOTE | 2020-03-25 02:03 | NUR ---
PATIENT RESTING QUIETLY AT 32 DEGREES ELEVATION. RESPIRATIONS REGULAR AND EVEN, CALL LIGHT IN REACH, PATIENT CAN BE SEEN FROM THE NURSES STATION.
--- NOTE | 2020-03-25 03:09 | NUR ---
PATIENT STOOD AT THE BEDSIDE WITH WALKER TO USE THE URINAL AND IS NOW BACK IN BED. BED ALARM ON, EYES CLOSED, RESPIRATIONS REGULAR AND EVEN, CALL LIGHT IN REACH AND PATIENT CAN BE SEEN FROM THE NURSES STATION.
--- NOTE | 2020-03-25 04:45 | NUR ---
PATIENT WANTED BOOSTED UP IN BED. PATIENT NOW AT 45 DEGREE ANGLE WITH PILLOWS UNDER THE KNEES AND HE IS COMFORTABLE IN THIS POSITION. CALL LIGHT IN REACH AND PATIENT CAN BE SEEN FROM THE NURSES STATION.
--- NOTE | 2020-03-25 04:52 | NUR ---
ORAL CARE COMPLETE.
--- NOTE | 2020-03-25 04:56 | NUR ---
PATIENT HAS RESTED ON AND OFF THROUGH THE NIGHT. HAD SOME TYLENOL FOR SOME GENERALIZED PAIN WHICH SEEMED TO HELP. PATIENT STANDS WITH 2PA AND FWW TO USE URINAL TO VOID. PATIENT REPOSITIONED FREQUENTLY THROUGH THE NIGHT. PATIENT SITTING UP AT 45 DEGREE ANGLE NOW IN BED JUST WATCHING WHATS GOING ON. CALL LIGHT IN REACH. TAKING PO MEDS FINE IF SITTING UP.
--- NOTE | 2020-03-25 07:50 | NUR ---
PATIENT SLEEPING. WHITE BOARD UPDATED. CALL LIGHT WITHIN REACH. NO OTHER NEEDS AT THIS TIME
--- NOTE | 2020-03-25 08:08 | NUR ---
Patient in bed, alert and oriented self and place. Scheduled tylenol given crushed with applesauce; pt tolerated fair. Aspiration precations in use. Po suction in use as needed. Pt denies sob and or chest pain. Bed elevated at 45 degrees. Close to RN station for frequent monitoring. Personal supplies and call light within reach.
--- NOTE | 2020-03-25 09:16 | NUR ---
PATIENT DROWSY IN BED. VITAL SIGNS AND I&O DONE. PATIENT'S BREAKFAST IS STILL AT BEDSIDE TABLE. CALL LIGHT WITHIN REACH. NO OTHER NEEDS AT THIS TIME
--- NOTE | 2020-03-25 10:27 | NUR ---
Assisted patient with his breakfast. Pt tolerated a few bites of applesauce and pureed oatmeal. Patient has notable difficulty swallowing, however, he is able to clear throat independently. Patient encouraged to chew slow and take breaks.
--- NOTE | 2020-03-25 11:58 | NUR ---
Called and left a message for Dr. Azam Evans plans on dc Don today. Requested she return my call.
--- NOTE | 2020-03-25 12:45 | NUR ---
In and spoke with pt's . Discussed plan to dc today. She states she has not had time to make a decision. Discussed CM spoke with her about this yesterday several times. Discussed to send him home as before. She states she has spoken with [facility] but is not sure if they can accept. Called Kimberly from the room, senior clinical study manager of the AF at [facility]) they do not have any beds available. Discussed SNF and other GLADYS. Cristina declines a SNF. Asked what her other preference would be and she states [facility]. Called and spoke with Ketty and they have a bed open in their memory care. She requests I fax the chart. Face sheet, H&P, progress notes, covid test, and PT note faxed to [facility].
--- NOTE | 2020-03-25 13:00 | NUR ---
Call from Ketty at [facility]. Their fax is down and she request I fax chart to [phone]. Attempted to fax x 2 and error message. Attempted to call, voice mail is full. Texted asking where I should fax this chart.
--- NOTE | 2020-03-25 15:20 | NUR ---
Patient sitting up in bed visiting with his . Pt's hob elevated @45o, respirations even and non labored. Personal supplies and call light within reach.
--- NOTE | 2020-03-25 15:30 | NUR ---
Notified by Summer their fax and emails are down. Attempted to fax to several different numbers. Will have someone take the chart and the orders to [facility].
[2020-03-25] MEDS ORDERED: ACETAMINOPHEN500 MG PO (16:12)
[2020-03-25] MEDS ORDERED: IPRATROPIUM BRO15 ML NAS (16:13)
--- NOTE | 2020-03-25 16:33 | NUR ---
CALLED DR MARTÍNEZ OFFICE AT [facility] FOR A FOLLOW UP APPOINTMENT. DR MATHIS WOULD LIKE PATIENT TO BE SEEN FOR HIS C4-C5 FRACTURE IN 6 WEEKS. INFORMATION GIVEN AND WILL CALL BACK TOMORROW TO CHECK ON APPOINTMENT. [phone]. CALLED TO SCHEDULE PATIENT WITH DR FAIRCHILD FOR TWO WEEKS, LEX WILL CALL BACK AFTER TALKING TO DR FAIRCHILD. CALLED DR ELDER OFFICE FOR AN ENT REFERRAL FOR NASAL BONE FRACTURES AND SINUS HEMORRHAGE. SHOULD BE SEEN IN TWO WEEKS. DR ELDER OFFICE IS GOING TO CALL [facility] TO SCHEDULE PATIENT. THEY WOULD LIKE RECORDS TO BE SENT THERE. THEIR FAX NUMBER IS [phone]
--- NOTE | 2020-03-25 17:35 | NUR ---
Pt sitting up at bedside eating dinner. Patient tolerating his soup independently. Patient close to RN station. Personal supplies and call light within reach.
--- NOTE | 2020-03-25 19:01 | NUR ---
PATIENT ASLEEP IN BED. CALL LIGHT WITHIN REACH. NO FURTHER NEEDS
--- NOTE | 2020-03-25 19:42 | NUR ---
PATIENT RESTING QUIETLY IN BED AT THIS TIME, NO CURRENT NEEDS, ATTENDS TRY, CALL LIGHT IN REACH, BED ALARM ON, PATIENT CAN BE SEEN FROM THE NURSES STATION.
--- NOTE | 2020-03-25 22:00 | NUR ---
PATIENT GIVEN 1,00MG SCHEDULED TYLENOL CRUSHED IN APPLESAUCE AND GIVEN PO. PATIENT TOLERATED WELL. CALL SHAYY IN REACH.
--- NOTE | 2020-03-25 23:06 | NUR ---
IN pt ROOM, ASSISTED SEAWEED HARVESTER SINTA TO REPOSITION PATIENT. C COLLAR IN PLACE. BED ALARM ON. SEAWEED HARVESTER REMAINS IN ROOM.
--- NOTE | 2020-03-26 | NUR ---
BED ALARM SOUNDING. pt CONFUSED, "I DON'T EVEN KNOW WHERE I'M AT". REORIENATION PROVIDED. pt ASSISTED BACK INTO BED. REPOSITIONED. DENIES TOILETING NEEDS. BEDSPRING ASSEMBLER SINTA IN ROOM. BED ALARM ON.
--- NOTE | 2020-03-26 01:06 | NUR ---
PATIENT RESTING QUIETLY IN HIGH FOWLERS POSITION, CALL LIGHT IN REACH.
--- NOTE | 2020-03-26 03:00 | NUR ---
Patient resting quietly in high fowlers position, has awakened briefly at times and had to be reoriented as to where he was and then he would go back to sleep. Call light in reach and patient can be seen from nurses station.
--- NOTE | 2020-03-26 05:31 | NUR ---
PATIENT HAS SLEPT A FAIR AMOUNT OF THE NIGHT, BUT HAS NOT HAD GREAT URINE OUTPUT SINCE 10PM. PATIENT CONTINUES TO REST QUIETLY AT THIS TIME, EYES CLOSED, RESPIRATIONS ARE REGULAR AND EVEN. CALL LIGHT IN REACH.
--- NOTE | 2020-03-26 05:38 | NUR ---
CALLED AND LET HIM KNOW PATIENT HAD ONLY VOIDED 150MLS THROUGH THE NIGHT, AND HE SAID,"I'M OK WITH THAT."
--- NOTE | 2020-03-26 05:39 | NUR ---
PRIMARY RN APOLLO NOTIFIED RE LOW OUTPUT.
--- NOTE | 2020-03-26 06:20 | NUR ---
ASSISTED PATIENT USE THE URINAL.
--- NOTE | 2020-03-26 07:50 | NUR ---
PATIENT RESTING IN BED. WHITE BOARD UPDATED. PATIENT'S HANDS AND FACE WASHED. CALL LIGHT WITHIN REACH. NO OTHER NEEDS AT THIS TIME
--- NOTE | 2020-03-26 07:53 | NUR ---
Patient resting in bed, hob elevated. Neck brace intact. Patient has no distress at this time. Personal supplies within reach. No needs at this time.
--- NOTE | 2020-03-26 09:33 | NUR ---
PATIENT SLEEPY. VITAL SIGNS AND I&O DONE. CALL LIGHT WITHIN REACH. NO OTHER NEEDS AT THIS TIME
--- NOTE | 2020-03-26 10:04 | NUR ---
Spoke with Ketty from [facility]. She is accepting Graeme and he can admit at 1 pm. Charge nurse notified.
--- NOTE | 2020-03-26 11:03 | NUR ---
Dr. Nascimento aware of current heart rate of 52 and that patient has not yet voided since early this morning. Patient's blood pressure remains stable; bp 131/56.
--- NOTE | 2020-03-26 12:50 | NUR ---
PATIENT SITTING UP ON THE EDGE OF THE BED. IN ROOM. THE FINAL VITAL SIGNS WERE OBTAINED PRIOR TO DISCHARGE FROM THE UNIT
== END 2020-03-26 12:50 | disposition home or self-care (01) | DRG 641 ==
LOC: ED 14:20 → MS 21:07
PROVIDERS: ADMIT Internal Medicine; ATTEND Internal Medicine
DX: E87.5 Hyperkalemia (principal); N17.9 Acute kidney failure, unspecified; Z20.828 Contact with and (suspected) exposure to other viral communicable diseases; R62.7 Adult failure to thrive; I12.9 Hypertensive chronic kidney disease with stage 1 through stage 4 chronic kidney disease, or unspecified chronic kidney disease; N18.30 Chronic kidney disease, stage 3 unspecified; G31.83 Neurocognitive disorder with Lewy bodies; F02.80 Dementia in other diseases classified elsewhere, unspecified severity, without behavioral disturbance, psychotic disturbance, mood disturbance, and anxiety; I25.10 Atherosclerotic heart disease of native coronary artery without angina pectoris; R13.10 Dysphagia, unspecified; E78.5 Hyperlipidemia, unspecified; K21.9 Gastro-esophageal reflux disease without esophagitis; R29.6 Repeated falls; E03.9 Hypothyroidism, unspecified; H91.90 Unspecified hearing loss, unspecified ear; S12.300D Unspecified displaced fracture of fourth cervical vertebra, subsequent encounter for fracture with routine healing; S12.400D Unspecified displaced fracture of fifth cervical vertebra, subsequent encounter for fracture with routine healing; S02.2XXD Fracture of nasal bones, subsequent encounter for fracture with routine healing; W19.XXXD Unspecified fall, subsequent encounter; Z66 Do not resuscitate; Z79.899 Other long term (current) drug therapy; Z88.8 Allergy status to other drugs, medicaments and biological substances; Z88.1 Allergy status to other antibiotic agents; Z88.5 Allergy status to narcotic agent; Y92.009 Unspecified place in unspecified non-institutional (private) residence as the place of occurrence of the external cause
CPT/HCPCS: 36415; 71045; 72100; 73552; 80048; 80053; 81001; 84484; 85025; 92526; 92610; 93005; 93010; 96374; 96376; 97116; 97163; 97166; 99285-25; C9803; J3010; J7030; J7121; U0003